=== PATIENT | male | born 1975 | race Caucasian/White ===

== ENCOUNTER 2017-02-23 18:51 | Emergency (ER) | payer BC, OTHER ==
[~2017-02-23] VITALS: Ht 180.3 cm; Wt 113.4 kg
[~2017-02-23 18:51] MED LIST: ALBU90OI; ALBU90OI INH; ALBU90OI6 INH; ALBU90OI61 INH; AMOCLA875 PO; AMOX250 PO; AMOX500 PO; BUPR100; CARI350 PO; CEPH500; CEPH500 PO; CIPR500 PO; CRUTCH3 USE; CYCL10 PO; DIAZ5 PO; DOXY100 PO; ENOX120I; ESCI20; FAMO20 PO; FLUT.05NI; HYDACE5; HYDACE5 PO; HYDACE5325 PO; HYDMOR2 PO; HYDPAM25; HYDPAM50; IBUP600 PO; IBUP800 PO; Levaquin500 MG PO; MARIJUANA; MEDICAL MARIJUANA; METCAR500 PO; Monodox100 MG PO; NAPR250; NAPR500; NAPR500 PO; NAPR500EC PO; Naprosyn500 MG PO; Norco 10-325 T1 EACH PO; Norco 5-325 Ta1 EACH PO; OSEL75CA PO; OXYACE10; OXYACE5T; OXYACE5T PO; OXYC5; PANT40; PRED10 PO; PRED20 PO; PROACE100 PO; PROCODE120 PO; PROM25 PO; Pepcid20 MG PO; QUET25; RANI150; ROXICODONE; RXHYDACE PO; RXPROM25 PO; RXTRAM50 PO; TRAM50 PO; TRAZ100; Veetids 500500 MG PO; WARF1; WARF10; WARF10 PO; WARF7.5; WELLBUTRIN; Zofran Odt8 MG SL; Zofran4 MG PO; [UNRECOGNIZED DRUG - REMARK]
[2017-02-23] MEDS ORDERED: GABA300 PO (19:11)
[2017-12-12] MEDS ORDERED: IBUP800 PO (16:31)
== END 2017-02-23 20:08 | disposition home or self-care (01) ==
LOC: ER 18:51
DX: S60.222A Contusion of left hand, initial encounter (principal); S79.911A Unspecified injury of right hip, initial encounter; M25.561 Pain in right knee; I10 Essential (primary) hypertension; Z88.8 Allergy status to other drugs, medicaments and biological substances; Z88.2 Allergy status to sulfonamides; Z79.899 Other long term (current) drug therapy; Z86.718 Personal history of other venous thrombosis and embolism; Z90.49 Acquired absence of other specified parts of digestive tract; Z87.891 Personal history of nicotine dependence; W19.XXXA Unspecified fall, initial encounter
CPT/HCPCS: 29125; 73130; 73502; 73562-RT; 99283; L3917

== ENCOUNTER 2017-07-14 15:55 | Emergency (ER) | payer OTHER, BC ==
[~2017-07-14] VITALS: Ht 180.3 cm; Wt 111.1 kg
[~2017-07-14 15:55] MED LIST changes: +GABA300 PO
[2017-07-14] MEDS ORDERED: Naprosyn500 MG PO (17:02)
== END 2017-07-14 17:10 | disposition home or self-care (01) ==
LOC: ER 15:55
DX: M54.2 Cervicalgia (principal); M54.6 Pain in thoracic spine; R07.89 Other chest pain; I10 Essential (primary) hypertension; Z88.8 Allergy status to other drugs, medicaments and biological substances; Z88.2 Allergy status to sulfonamides; Z88.1 Allergy status to other antibiotic agents; Z86.718 Personal history of other venous thrombosis and embolism; Z87.891 Personal history of nicotine dependence; V43.62XA Car passenger injured in collision with other type car in traffic accident, initial encounter
CPT/HCPCS: 72040; 96372; 99283; J1885; L0160

== ENCOUNTER 2017-10-23 06:48 | Emergency (ER) | payer BC, OTHER ==
[~2017-10-23] VITALS: Ht 180.3 cm; Wt 108.9 kg
[2017-10-23] MEDS ORDERED: Norco 10-325 T1 EACH PO (07:42)
== END 2017-10-23 08:00 | disposition home or self-care (01) ==
LOC: ER 06:48
DX: M25.512 Pain in left shoulder (principal); Z88.8 Allergy status to other drugs, medicaments and biological substances; Z88.2 Allergy status to sulfonamides; Z88.1 Allergy status to other antibiotic agents; Z87.891 Personal history of nicotine dependence; I10 Essential (primary) hypertension
CPT/HCPCS: 29105; 73030; 96372; 99283-25; J1885

== ENCOUNTER 2018-05-17 21:22 | Emergency (ER) | payer BC ==
[~2018-05-17] VITALS: Ht 180.3 cm; Wt 111.1 kg
== END 2018-05-18 01:12 | disposition home or self-care (01) ==
LOC: ER 21:22
DX: S89.92XA Unspecified injury of left lower leg, initial encounter (principal); X58.XXXA Exposure to other specified factors, initial encounter; I10 Essential (primary) hypertension; F17.290 Nicotine dependence, other tobacco product, uncomplicated
CPT/HCPCS: 29505; 73562-LT; 99283-25; A9270-GY

== ENCOUNTER 2018-08-11 06:56 | Emergency (ER) | payer OTHER ==
[~2018-08-11] VITALS: Ht 182.9 cm; Wt 112.5 kg
[2018-08-11 07:35] LABS: BASOPHILS ABSOLUTE AUTO 0.11 K/mm3 (0.00-0.23); BASOPHILS PERCENT AUTO 1 % (0-2); EOSINOPHILS ABSOLUTE AUTO 0.33 K/mm3 (0.00-0.68); EOSINOPHILS PERCENT AUTO 4 % (0-6); Hematocrit 44.9 % (37.0-53.0); Hemoglobin 15.4 g/dL (13.5-17.5); IMMATURE GRAN ABSOLUTE AUTO 0.03 K/mm3 (0.00-0.10); IMMATURE GRAN PERCENT AUTO 0 % (0-1); LYMPHOCYTES ABSOLUTE AUTO 5.01 K/mm3 (0.84-5.20); LYMPHOCYTES PERCENT AUTO 54 % (21-46); MONOCYTES ABSOLUTE AUTO 0.71 K/mm3 (0.16-1.47); MONOCYTES PERCENT AUTO 8 % (4-13); Mean Corpuscular HGB Conc 34.3 g/dL (31.5-36.5); Mean Corpuscular Volume 87 fL (80-100); Mean Platelet Volume 9.3 fL (9.1-12.4); NEUTROPHILS ABSOLUTE AUTO 3.15 K/mm3 (1.96-9.15); NEUTROPHILS PERCENT AUTO 34 % (41-73); Platelet Count 345 K/mm3 (150-400); RDW Standard Deviation 45.4 fL (35.1-46.3); Red Blood Cell Count 5.14 M/mm3 (4.30-5.90); White Blood Cell Count 9.34 K/mm3 (4.00-11.30)
[2018-08-11 08:00] LABS: Alanine Aminotransfer (ALT/SGP 25 U/L (12-78); Albumin, Blood 3.6 g/dL (3.4-5.0); Albumin/Globulin Ratio 1.2 (0.8-1.8); Alk Phos 76 U/L (50-136); Anion Gap 5 mmol/L (6-16); Aspartate Aminotrans (AST/SGOT 17 U/L (12-37); Bilirubin, Total 0.3 mg/dL (0.1-1.0); Blood Urea Nitrogen 11 mg/dL (8-24); Bun/Creatinine Ratio 16.1 (12.0-20.0); CO2, Blood 25 mmol/L (21-32); Calcium, Blood 7.9 mg/dL (8.5-10.1); Chloride, Blood 113 mmol/L (98-108); Creatinine, Blood 0.68 mg/dL (0.60-1.20); Glomerular Filtration Rate >60 (60-); Glucose, Blood 107 mg/dL (70-99); Potassium, Blood 3.8 mmol/L (3.5-5.5); Sodium, Blood 143 mmol/L (136-145); Total Protein, Blood 6.6 g/dL (6.4-8.2); Troponin I <0.015 ng/mL (0.000-0.040)
== END 2018-08-11 10:20 | disposition home or self-care (01) ==
LOC: ER 06:56
PROVIDERS: Physician Assistant
DX: R07.9 Chest pain, unspecified (principal); Z88.8 Allergy status to other drugs, medicaments and biological substances; Z88.2 Allergy status to sulfonamides; Z88.1 Allergy status to other antibiotic agents; Z87.891 Personal history of nicotine dependence
CPT/HCPCS: 36415; 71046; 80053; 83880; 84484; 85025; 93005; 93010; 99285-25

== ENCOUNTER 2018-08-13 09:58 | Observation (INO) | payer OTHER ==
[~2018-08-13] VITALS: Ht 180.3 cm; Wt 114.0 kg
[2018-08-13 10:56] LABS: BASOPHILS PERCENT AUTO 1 % (0-2); EOSINOPHILS ABSOLUTE AUTO 0.17 K/mm3 (0.00-0.68); EOSINOPHILS PERCENT AUTO 2 % (0-6); Hematocrit 48.6 % (37.0-53.0); Hemoglobin 16.4 g/dL (13.5-17.5); IMMATURE GRAN ABSOLUTE AUTO 0.05 K/mm3 (0.00-0.10); IMMATURE GRAN PERCENT AUTO 1 % (0-1); LYMPHOCYTES ABSOLUTE AUTO 6.58 K/mm3 (0.84-5.20); LYMPHOCYTES PERCENT AUTO 60 % (21-46); MONOCYTES ABSOLUTE AUTO 0.72 K/mm3 (0.16-1.47); MONOCYTES PERCENT AUTO 7 % (4-13); Mean Corpuscular HGB Conc 33.7 g/dL (31.5-36.5); Mean Corpuscular Volume 89 fL (80-100); Mean Platelet Volume 9.5 fL (9.1-12.4); NEUTROPHILS ABSOLUTE AUTO 3.36 K/mm3 (1.96-9.15); NEUTROPHILS PERCENT AUTO 31 % (41-73); Platelet Count 393 K/mm3 (150-400); RDW Coefficient Variation 14.1 % (11.7-14.2); RDW Standard Deviation 45.5 fL (35.1-46.3); Red Blood Cell Count 5.46 M/mm3 (4.30-5.90); White Blood Cell Count 10.98 K/mm3 (4.00-11.30)
[2018-08-13 11:10] LABS: Alanine Aminotransfer (ALT/SGP 31 U/L (12-78); Albumin, Blood 3.9 g/dL (3.4-5.0); Albumin/Globulin Ratio 1.1 (0.8-1.8); Alk Phos 86 U/L (50-136); Anion Gap 5 mmol/L (6-16); Aspartate Aminotrans (AST/SGOT 21 U/L (12-37); Bilirubin, Total 0.5 mg/dL (0.1-1.0); Blood Urea Nitrogen 14 mg/dL (8-24); Bun/Creatinine Ratio 20.6 (12.0-20.0); CO2, Blood 25 mmol/L (21-32); Calcium, Blood 8.9 mg/dL (8.5-10.1); Chloride, Blood 112 mmol/L (98-108); Creatinine, Blood 0.68 mg/dL (0.60-1.20); Globulin, Blood 3.7 g/dL (2.2-4.0); Glomerular Filtration Rate >60 (60-); Glucose, Blood 96 mg/dL (70-99); Potassium, Blood 3.9 mmol/L (3.5-5.5); Sodium, Blood 142 mmol/L (136-145); Total Protein, Blood 7.6 g/dL (6.4-8.2); Troponin I <0.015 ng/mL (0.000-0.040)
[2018-08-13 16:00] LABS: CHOL/HDL RATIO 3.8; Cholesterol 191 mg/dL (50-200); HDL Cholesterol 50 mg/dL (>39); LDL/HDL RATIO 2.5; Low Density Lipoprotein Chol 127 mg/dL (0-110); Triglycerides 71 mg/dL (30-160); Very Low Density Lipoprot Chol 14 mg/dL (6-32)
--- NOTE | 2018-08-14 00:01 | NUR ---
ADMIT NOTE/UPDATE: PATIENT ADMITED FROM THE ER EARLIER THIS SHIFT AND WAS ABLE TO TRANSFER SELF FROM THE GURNEY TO THE BED WITH SBA. PATIENT REPORTS HE HAS BEEN GETTING VERY DIZZY AND HAS FALLEN SEVERAL TIMES DUE TO IT RECENTLY. PATIENT EDUCATED ON FALL PRVENTION AND STATES HE WILL CALL STAFF BEFORE GETTING UP. PATIENT STATES HE HAS MILD CHEST DISCOMFORT BUT DOES NOT REQUIRE MEDICATION FOR IT AT THIS TIME. PATIENT ADMIT COMPLETED PER PATIENT REPORT. PATIENT CURRENTLY RESTING IN BED ATTEMPTING TO SLEEP. VITAL SIGNS CHARTED. REPORT GIVEN TOR SOMERS RN.
--- NOTE | 2018-08-14 03:11 | NUR ---
LATE ENTRY 2340 ASSUMED CARE OF PATIENT FROM CARYN BAR. PATIENT A/O, ABLE TO MAKE NEEDS KNOWN. COOPERATIVE WITH CARE. LAYING IN BED UPON REPORT. NO ACUTE CHANGES CURRENTLY. INDEPENDENTLY TO BATHROOM; CALLS BEFORE EXITING. BED IN LOWEST POSITION. CALL LIGHT AND BELONGINGS WITHIN REACH. TM.
--- NOTE | 2018-08-14 06:28 | NUR ---
SHIFT SUMMARY A/O, ABLE TO MAKE NEEDS KNOWN. COOPERATIVE WITH CARE. ANSWERS QUESTIONS APPROPRIATELY. NO C/O PAIN/DISCOMFORT. DID HOWEVER STATE THAT HE NORMALLY USES MEDICAL MARIJUANA PRIOR TO BED TO HELP SLEEP; STATED THAT HE WOULD TRYOUT MELATONIN. STATED HAD TRIED TRAZADONE PREVIOUSLY, WHICH DID NOT WORK FOR HIM. NEW ORDER FROM ON-CALL FOR MELATONIN 5MG @ BEDTIME PRN. VSS/AFEBRILE. NO OTHER REPORTS OF DIZZINESS. APPEARED TO REST AT LATER PART OF SHIFT. STATED THAT HE DID NOT LIKE THE WAY THE SCD'S FELT ON HIS LEGS AND DID NOT WANT TO WEAR THEM. NEW IV PLACED; STATED PREVIOUS WAS HURTING. NO OTHER ACUTE CHANGES. BED IN LOWEST POSITION. CALL LIGHT AND BELONGINGS WITHIN REACH. WCTM. REPORT TO ONCOMING RN.
--- NOTE | 2018-08-14 07:45 | NUR ---
INITIAL ASSESSMENT: PT IS RESTING IN BED WATCHING TV. PT IS ALERT AND OX3. PT REPORTS HE IS HAVING CONTINOUS CHEST "DISCOMFORT" IN HIS LEFT CHEST AND LEFT SCAPULAR AREA ON HIS BACK. PT RATES IT A 4/10. HE STATES IT GETS WORSE WHEN HE LAYS DOWN. HE IS ALSO HAVING SOME INCREASED SOB. BIOX 93% ON RA. HRR. LS CTA. BT+. PPP, NO EDEMA PRESENT. I AM GONNA HOLD PATIENTS BEAKFAST TRAY UNTIL CARDIOLOGY GETS HERE. PT DENIES OTHER NEEDS AT THIS TIME, CALL LIGHT IN REACH. WILL CONTINUE TO MONITOR.
--- NOTE | 2018-08-14 10:00 | NUR ---
DR. NUNEZ HERE TO SEE THE PATIENT, PLAN IS FOR THE PATIENT TO HAVE AN ANGIOGRAM.
--- NOTE | 2018-08-14 10:45 | NUR ---
PT TO OFFICE MACHINERY OR EQUIPMENT INSTALLER WITH HEART CENTER NURSE.
--- NOTE | 2018-08-14 11:50 | NUR ---
PT ARRIVED BACK FROM THE DOCUMENT CONTROL MANAGER. PT IS AWAKE AND ALERT. RIGHT RADIAL SITE WITH TR BAND AND ARM BOARD. NO OOZING PRESENT, CAP REFILL BRISK. PT DENIES N/T TO RIGHT HAND. PLETH GOOD ON NIBP. PT REPORTS SOME TENDERNESS AT THE SITE. BP A LITTLE HIGH, PT STATES HE DID HAVE SOME ANXIETY DURING THE PROCEDRE, BUT IT IS GETTING BETTER NOW. PT DENIES OTHER NEEDS AT THIS TIME, CALL LIGHT IN REACH. WILL CONTINUE TO MONITOR.
--- NOTE | 2018-08-14 12:00 | NUR ---
REPORT GIVEN TO EMMA RUBIN.
--- NOTE | 2018-08-14 12:57 | NUR ---
ASSUMED CARE OF PATIENT AT THIS TIME. PATIENT RADIAL SITE WNL. NO OOZING AT SITE. TR BAND IN PLACE. VSS AT THIS TIME. PATIENT DENIES PAIN OR DISCOMFORT. WILL CONT TO MONITOR CLOSELY FOR CHANGES. PT FAMILY IN ROOM AT THIS TIME.
--- NOTE | 2018-08-14 17:23 | NUR ---
SHIFT SUMMARY ASSUMED CARE OF PATIENT AT 1230. PATIENT HAD ANGIO TODAY AND WAS CLEAR. TR BAND TO R WRIST. ALL AIR HAS BEEN REMOVED AND WAITING INE HR TO REMOVE BAND. PATIENT ONLY COMPLAINT IS PAIN IN R WRIST. NO OTHER COMPLAINTS. DISCUSSED WITH DR CANNON AND THERE IS POSSIBILITY SHE OR CHANGE BOOTH ATTENDANT MAY ORDER PE STUDIES BUT NO ORDER NOTED AT THIS TIME. PTS VSS. RADIAL SITE WNL, NO BLEEDING OR OOZING.
[2018-08-15] MEDS ORDERED: ATOR20 PO (12:49)
[2018-08-15] MEDS ORDERED: AMLO5 PO (12:50)
--- NOTE | 2018-08-15 13:00 | NUR ---
DISCHARGE SUMMARY PT A&OX4, VSS, WALKED OFF FLOOR TO GO HOME WITH SON, WITH ALL PERSONAL POSSESSIONS INCLUDING DISCHARGE PACKET. DC INSTRUCTIONS PROVIDED. PT REP UNDERSTANDING THOSE INSTRUCTIONS INCLUDING FU APPT WITH CARDIOLOGY AND PCP, NEW MEDS AT PHARMACY. IV DC'D.
== END 2018-08-15 13:00 | disposition home or self-care (01) ==
LOC: ER 09:58 → PCU 09:59 → ERHOLD 09:59 → PCU 20:55
PROVIDERS: Physician Assistant; ADMIT Family Medicine
DX: R07.89 Other chest pain (principal); R55 Syncope and collapse; R00.1 Bradycardia, unspecified; E78.5 Hyperlipidemia, unspecified; I10 Essential (primary) hypertension; Z88.8 Allergy status to other drugs, medicaments and biological substances; Z88.1 Allergy status to other antibiotic agents; Z87.891 Personal history of nicotine dependence
CPT/HCPCS: 36415; 71046; 80053; 80061; 84484; 85025; 85379; 93005; 93010; 93306; 93454; 96361; 96372; 96374; 99152; 99153; 99285-25; A9270; C1769; C1894; G0378; J0461; J1644; J1650; J1885; J2250; J2405; J3010; J7030; Q9967

== ENCOUNTER 2018-10-08 18:06 | Observation (INO) | payer OTHER ==
[~2018-10-08 18:06] MED LIST changes: +AMLO5 PO; +ATOR20 PO
--- NOTE | 2018-10-09 00:02 | NUR ---
10/08/18 2230 PT ADMITTED TO 303 PER CART FROM ER.
[2018-10-09 01:02] LABS: Source, Urine Clean Catch
[2018-10-09 01:10] LABS: Appearance, Urine Clear (Clear); Bilirubin, Urine Neg (Neg); Blood, Urine Neg (Neg); Color, Urine Yellow (P-Yellow); Glucose Qualitative, Urine Neg (Neg); Ketones, Urine 1+ (Neg); Leukocyte Esterase, Urine Neg (Neg); Nitrite, Urine Neg (Neg); Protein, Urine Neg (Neg); Urobilinogen, Urine NORM (Normal)
[2018-10-09 01:33] LABS: U Amphetamine Screen Not Detected; U Barbituate Screen Not Detected; U Benzodiazapine Screen Not Detected; U Buprenorphine Screen Not Detected; U Cannabinoids Screen DETECTED; U Cocaine Screen Not Detected; U Methadone Screen Not Detected; U Methamphetamine Screen Not Detected; U Opiates Screen Not Detected; U Oxycodone Screen Not Detected; U Phencyclidine Screen Not Detected; U Propoxyphene Screen Not Detected
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
[2018-10-09 04:52] LABS: Hematocrit 44.9 % (37.0-53.0); Hemoglobin 15.5 g/dL (13.5-17.5); Mean Corpuscular HGB 30.5 pg (26.0-34.0); Mean Corpuscular HGB Conc 34.5 g/dL (31.5-36.5); Mean Corpuscular Volume 88 fL (80-100); Mean Platelet Volume 9.4 fL (9.1-12.4); Platelet Count 338 K/mm3 (150-400); RDW Coefficient Variation 13.6 % (11.7-14.2); RDW Standard Deviation 44.5 fL (35.1-46.3); Red Blood Cell Count 5.09 M/mm3 (4.30-5.90); White Blood Cell Count 9.87 K/mm3 (4.00-11.30)
[2018-10-09 05:19] LABS: Alanine Aminotransfer (ALT/SGP 26 U/L (12-78); Albumin, Blood 3.6 g/dL (3.4-5.0); Albumin/Globulin Ratio 1.1 (0.8-1.8); Alk Phos 76 U/L (50-136); Anion Gap 6 mmol/L (6-16); Aspartate Aminotrans (AST/SGOT 18 U/L (12-37); Bilirubin, Total 0.7 mg/dL (0.1-1.0); Blood Urea Nitrogen 16 mg/dL (8-24); Bun/Creatinine Ratio 20.4 (12.0-20.0); CO2, Blood 25 mmol/L (21-32); Chloride, Blood 112 mmol/L (98-108); Creatinine, Blood 0.78 mg/dL (0.60-1.20); Globulin, Blood 3.3 g/dL (2.2-4.0); Glomerular Filtration Rate >60 (60-); Glucose, Blood 86 mg/dL (70-99); Potassium, Blood 3.6 mmol/L (3.5-5.5); Sodium, Blood 143 mmol/L (136-145); Total Protein, Blood 6.9 g/dL (6.4-8.2)
[2018-10-09 10:40] LABS: Adenovirus F 40/41 Not Detected (NOT DETECT); Astrovirus Not Detected (NOT DETECT); Campylobacter Sp Not Detected (NOT DETECT); Cryptosporidium Not Detected (NOT DETECT); Cyclospora Cayetanensis Not Detected (NOT DETECT); E. Coli O157 Not Detected (NOT DETECT); Entamoeba Histolytica Not Detected (NOT DETECT); Enteroaggregative E. coli-EAEC Not Detected (NOT DETECT); Enteropathogenic E. coli-EPEC Not Detected (NOT DETECT); Enterotoxigenic E. coli-ETEC Not Detected (NOT DETECT); Giardia Lamblia Not Detected (NOT DETECT); Norovirus GI/GII Not Detected (NOT DETECT); Plesiomonas Shigelloides Not Detected (NOT DETECT); Rotavirus A Not Detected (NOT DETECT); Salmonella Sp Not Detected (NOT DETECT); Sapovirus Not Detected (NOT DETECT); Shiga Toxin-prod E. coli-STEC Not Detected (NOT DETECT); Shigella/Enteroin E. coli-EIEC Not Detected (NOT DETECT); Vibrio Cholerae Not Detected (NOT DETECT); Vibrio Sp Not Detected (NOT DETECT); Yersinia Enterocolitica Not Detected (NOT DETECT)
[2018-10-09] MEDS ORDERED: OMEP20ER PO (15:14)
--- NOTE | 2018-10-09 17:10 | NUR ---
PT. DISCHARGED HOME WITH INSTRUCTIONS NOT TO DRIVE UNTIL FOLLOWING UP WITH THE INSTRUMENT TECHNICIAN. DISCHARGED HOME WITH SPOUSE.
== END 2018-10-09 17:13 | disposition home or self-care (01) ==
LOC: ER 18:06 → MEDS 18:07
PROVIDERS: ADMIT Internal Medicine
DX: R55 Syncope and collapse (principal); I10 Essential (primary) hypertension; E78.5 Hyperlipidemia, unspecified; R19.7 Diarrhea, unspecified; M54.9 Dorsalgia, unspecified; G89.29 Other chronic pain; Z86.718 Personal history of other venous thrombosis and embolism; Z88.1 Allergy status to other antibiotic agents; Z88.8 Allergy status to other drugs, medicaments and biological substances; G47.00 Insomnia, unspecified
CPT/HCPCS: 0097U; 36415; 70450; 71260; 72125; 80053; 81003; 83880; 84484; 85025; 85027; 93005; 93010; 96372; 96374; 99284-25; 99285-25; A9270; G0378; J0360; J1650; J7030; Q9967

== ENCOUNTER 2018-10-15 09:54 | Emergency (ER) | payer OTHER ==
[~2018-10-15] VITALS: Ht 180.3 cm; Wt 115.2 kg
[~2018-10-15 09:54] MED LIST changes: +OMEP20ER PO
[2018-10-15 10:34] LABS: BASOPHILS ABSOLUTE AUTO 0.12 K/mm3 (0.00-0.23); BASOPHILS PERCENT AUTO 1 % (0-2); EOSINOPHILS ABSOLUTE AUTO 0.16 K/mm3 (0.00-0.68); EOSINOPHILS PERCENT AUTO 2 % (0-6); Hematocrit 48.5 % (37.0-53.0); Hemoglobin 16.7 g/dL (13.5-17.5); IMMATURE GRAN ABSOLUTE AUTO 0.04 K/mm3 (0.00-0.10); IMMATURE GRAN PERCENT AUTO 0 % (0-1); LYMPHOCYTES ABSOLUTE AUTO 6.31 K/mm3 (0.84-5.20); LYMPHOCYTES PERCENT AUTO 60 % (21-46); MONOCYTES ABSOLUTE AUTO 0.79 K/mm3 (0.16-1.47); MONOCYTES PERCENT AUTO 7 % (4-13); Mean Corpuscular HGB Conc 34.4 g/dL (31.5-36.5); Mean Corpuscular Volume 87 fL (80-100); Mean Platelet Volume 9.2 fL (9.1-12.4); NEUTROPHILS ABSOLUTE AUTO 3.19 K/mm3 (1.96-9.15); NEUTROPHILS PERCENT AUTO 30 % (41-73); Platelet Count 382 K/mm3 (150-400); RDW Coefficient Variation 13.5 % (11.7-14.2); Red Blood Cell Count 5.57 M/mm3 (4.30-5.90); White Blood Cell Count 10.61 K/mm3 (4.00-11.30)
[2018-10-15 11:01] LABS: Alanine Aminotransfer (ALT/SGP 29 U/L (12-78); Albumin, Blood 4.2 g/dL (3.4-5.0); Albumin/Globulin Ratio 1.1 (0.8-1.8); Alk Phos 86 U/L (50-136); Anion Gap 9 mmol/L (6-16); Aspartate Aminotrans (AST/SGOT 19 U/L (12-37); Bilirubin, Total 0.4 mg/dL (0.1-1.0); Blood Urea Nitrogen 13 mg/dL (8-24); Bun/Creatinine Ratio 20.8 (12.0-20.0); CO2, Blood 22 mmol/L (21-32); Calcium, Blood 8.8 mg/dL (8.5-10.1); Chloride, Blood 111 mmol/L (98-108); Creatinine, Blood 0.62 mg/dL (0.60-1.20); Globulin, Blood 3.8 g/dL (2.2-4.0); Glomerular Filtration Rate >60 (60-); Glucose, Blood 95 mg/dL (70-99); Potassium, Blood 3.8 mmol/L (3.5-5.5); Sodium, Blood 142 mmol/L (136-145); Troponin I <0.015 ng/mL (0.000-0.040)
== END 2018-10-15 16:16 | disposition home or self-care (01) ==
LOC: ER 09:54
PROVIDERS: Emergency Medicine
DX: R55 Syncope and collapse (principal); Z88.8 Allergy status to other drugs, medicaments and biological substances; Z88.2 Allergy status to sulfonamides; Z88.1 Allergy status to other antibiotic agents; Z79.899 Other long term (current) drug therapy; I10 Essential (primary) hypertension; Z87.891 Personal history of nicotine dependence
CPT/HCPCS: 36415; 71046; 80053; 82947; 84484; 85025; 93005; 93010; 99284-25

== ENCOUNTER 2018-11-03 05:31 | Day surgery (SDC) | payer OTHER ==
[~2018-11-03] VITALS: Ht 180.3 cm; Wt 115.0 kg
--- NOTE | 2018-11-03 08:13 | NUR ---
DISCHARGE PT REMAINED A&OX3 AND DENIED ANY PAIN FROM END OF PROCEDURE. DISCHARGE EDUCATION GONE OVER WITH PT AND FOLLOW-UP APPOINTMENT SCHEDULED. PT AND SPOUSE VERBALLY STATED THE UNDERSTANDING OF THE DISCHARGE PAPERWORK AND DENIED ANY QUESTIONS AT THIS TIME. PT REFUSED WHEELCHAIR AND WALKED OUT WITH .
== END 2018-11-03 22:44 | disposition home or self-care (01) ==
LOC: MHTC 05:31
DX: R55 Syncope and collapse (principal); I10 Essential (primary) hypertension; K21.9 Gastro-esophageal reflux disease without esophagitis; Z79.899 Other long term (current) drug therapy; Z87.891 Personal history of nicotine dependence; Z88.1 Allergy status to other antibiotic agents; Z88.8 Allergy status to other drugs, medicaments and biological substances
CPT/HCPCS: 33285; 99152; C1764; J2250; J3010; J7040

== ENCOUNTER 2019-05-20 21:02 | Emergency (ER) | payer OTHER ==
[~2019-05-20] VITALS: Ht 180.3 cm; Wt 113.8 kg
[2019-05-20 21:28] LABS: BASOPHILS ABSOLUTE AUTO 0.11 K/mm3 (0.00-0.23); BASOPHILS PERCENT AUTO 1 % (0-2); EOSINOPHILS ABSOLUTE AUTO 0.39 K/mm3 (0.00-0.68); EOSINOPHILS PERCENT AUTO 3 % (0-6); Hematocrit 46.9 % (37.0-53.0); Hemoglobin 15.8 g/dL (13.5-17.5); IMMATURE GRAN ABSOLUTE AUTO 0.03 K/mm3 (0.00-0.10); IMMATURE GRAN PERCENT AUTO 0 % (0-1); LYMPHOCYTES ABSOLUTE AUTO 7.21 K/mm3 (0.84-5.20); LYMPHOCYTES PERCENT AUTO 56 % (21-46); MONOCYTES ABSOLUTE AUTO 1.11 K/mm3 (0.16-1.47); MONOCYTES PERCENT AUTO 9 % (4-13); Mean Corpuscular HGB 29.6 pg (26.0-34.0); Mean Corpuscular HGB Conc 33.7 g/dL (31.5-36.5); Mean Corpuscular Volume 88 fL (80-100); Mean Platelet Volume 9.2 fL (9.1-12.4); NEUTROPHILS ABSOLUTE AUTO 3.98 K/mm3 (1.96-9.15); NEUTROPHILS PERCENT AUTO 31 % (41-73); Platelet Count 367 K/mm3 (150-400); RDW Coefficient Variation 14.2 % (11.7-14.2); Red Blood Cell Count 5.34 M/mm3 (4.30-5.90); White Blood Cell Count 12.83 K/mm3 (4.00-11.30)
[2019-05-20 21:50] LABS: Troponin I <0.015 ng/mL (0.000-0.040)
[2019-05-20 23:36] LABS: Alanine Aminotransfer (ALT/SGP 35 U/L (12-78); Albumin, Blood 3.9 g/dL (3.4-5.0); Albumin/Globulin Ratio 1.1 (0.8-1.8); Anion Gap 9 mmol/L (6-16); Aspartate Aminotrans (AST/SGOT 24 U/L (12-37); Bilirubin, Total 0.3 mg/dL (0.1-1.0); Blood Urea Nitrogen 18 mg/dL (8-24); Bun/Creatinine Ratio 21.4 (12.0-20.0); CO2, Blood 23 mmol/L (21-32); Calcium, Blood 8.7 mg/dL (8.5-10.1); Chloride, Blood 114 mmol/L (98-108); Creatinine, Blood 0.84 mg/dL (0.60-1.20); Globulin, Blood 3.6 g/dL (2.2-4.0); Glomerular Filtration Rate >60 (60-); Glucose, Blood 112 mg/dL (70-99); Potassium, Blood 3.9 mmol/L (3.5-5.5); Sodium, Blood 146 mmol/L (136-145); Total Protein, Blood 7.5 g/dL (6.4-8.2)
[2019-05-20 23:38] LABS: Alk Phos 91 U/L (50-136)
== END 2019-05-21 01:03 | disposition home or self-care (01) ==
LOC: ER 21:02
PROVIDERS: Emergency Medicine
DX: R00.2 Palpitations (principal); R42 Dizziness and giddiness; I10 Essential (primary) hypertension; M54.9 Dorsalgia, unspecified; G89.29 Other chronic pain; Z86.711 Personal history of pulmonary embolism; Z88.2 Allergy status to sulfonamides; Z88.8 Allergy status to other drugs, medicaments and biological substances; Z87.891 Personal history of nicotine dependence
CPT/HCPCS: 36415; 71046; 80053; 83690; 83880; 84484; 85025; 93005; 93010; 99284-25

== ENCOUNTER 2019-11-15 07:51 | Inpatient (IN) | payer OTHER ==
[~2019-11-15] VITALS: Ht 180.3 cm; Wt 113.5 kg
[2019-11-15 08:37] LABS: BASOPHILS ABSOLUTE AUTO 0.12 K/mm3 (0.00-0.23); BASOPHILS PERCENT AUTO 1 % (0-2); EOSINOPHILS ABSOLUTE AUTO 0.21 K/mm3 (0.00-0.68); EOSINOPHILS PERCENT AUTO 2 % (0-6); Hematocrit 46.2 % (37.0-53.0); Hemoglobin 15.7 g/dL (13.5-17.5); IMMATURE GRAN ABSOLUTE AUTO 0.06 K/mm3 (0.00-0.10); IMMATURE GRAN PERCENT AUTO 1 % (0-1); LYMPHOCYTES ABSOLUTE AUTO 5.44 K/mm3 (0.84-5.20); LYMPHOCYTES PERCENT AUTO 47 % (21-46); MONOCYTES ABSOLUTE AUTO 1.02 K/mm3 (0.16-1.47); MONOCYTES PERCENT AUTO 9 % (4-13); Mean Corpuscular HGB 29.9 pg (26.0-34.0); Mean Corpuscular Volume 88 fL (80-100); Mean Platelet Volume 9.1 fL (9.1-12.4); NEUTROPHILS ABSOLUTE AUTO 4.62 K/mm3 (1.96-9.15); NEUTROPHILS PERCENT AUTO 40 % (41-73); Platelet Count 356 K/mm3 (150-400); RDW Coefficient Variation 14.4 % (11.7-14.2); RDW Standard Deviation 46.4 fL (35.1-46.3); Red Blood Cell Count 5.25 M/mm3 (4.30-5.90); White Blood Cell Count 11.47 K/mm3 (4.00-11.30)
[2019-11-15 08:57] LABS: Alanine Aminotransfer (ALT/SGP 25 U/L (12-78); Albumin, Blood 3.6 g/dL (3.4-5.0); Alk Phos 75 U/L (50-136); Anion Gap 8 mmol/L (6-16); Aspartate Aminotrans (AST/SGOT 18 U/L (12-37); Bilirubin, Total 0.5 mg/dL (0.1-1.0); Blood Urea Nitrogen 11 mg/dL (8-24); Bun/Creatinine Ratio 14.9 (12.0-20.0); CO2, Blood 23 mmol/L (21-32); Chloride, Blood 111 mmol/L (98-108); Creatinine, Blood 0.74 mg/dL (0.60-1.20); Globulin, Blood 3.5 g/dL (2.2-4.0); Glomerular Filtration Rate >60 (60-); Glucose, Blood 102 mg/dL (70-99); Potassium, Blood 3.8 mmol/L (3.5-5.5); Sodium, Blood 142 mmol/L (136-145); Total Protein, Blood 7.1 g/dL (6.4-8.2)
--- NOTE | 2019-11-15 18:15 | NUR ---
SHIFT SUMMARY PATIENT IS PLEASANT, ALERT AND ORIENTED. HE HAS A LOOP TRACKER IN HIS CHEST TO RECORD FOR ANY CONCERNS DUE TO FAINTING. HE HAS NOT HAD AN EPISODE RECENTLY. HE DOES HAVE R SIDED FACIAL SWELLING. DENIES ANY CONCERNS OF PAIN. HE HAD NO TROUBLE SWALLOWING. HE WAS SEEN BY ENT TODAY. INDEPENDENT IN THE ROOM.
--- NOTE | 2019-11-15 19:00 | NUR ---
ASSUMED CARE RECEIVED REPORT FROM CARYN GARCIA. ASSUMED CARE OF PT, NO S/S ACUTE DISTRESS NOTED, DENIES CP, PRESSURE, SOB. NO C/O DIZZINESS. REVIEWED PLAN OF CARE. PT INDICATES UNDERSTANDING. DENIES FURTHER NEEDS AT THIS TIME. CALL LIGHT, POSSESSIONS IN REACH, WILL CONTINUE TO MONITOR AND PROVIDE CARE NEEDED.
[2019-11-16 05:24] LABS: BASOPHILS ABSOLUTE AUTO 0.01 K/mm3 (0.00-0.23); BASOPHILS PERCENT AUTO 0 % (0-2); EOSINOPHILS ABSOLUTE AUTO 0.01 K/mm3 (0.00-0.68); EOSINOPHILS PERCENT AUTO 0 % (0-6); Hematocrit 49.1 % (37.0-53.0); Hemoglobin 16.8 g/dL (13.5-17.5); IMMATURE GRAN ABSOLUTE AUTO 0.05 K/mm3 (0.00-0.10); IMMATURE GRAN PERCENT AUTO 0 % (0-1); LYMPHOCYTES ABSOLUTE AUTO 3.32 K/mm3 (0.84-5.20); LYMPHOCYTES PERCENT AUTO 28 % (21-46); MONOCYTES ABSOLUTE AUTO 0.19 K/mm3 (0.16-1.47); MONOCYTES PERCENT AUTO 2 % (4-13); Mean Corpuscular HGB 29.4 pg (26.0-34.0); Mean Corpuscular HGB Conc 34.2 g/dL (31.5-36.5); Mean Corpuscular Volume 86 fL (80-100); Mean Platelet Volume 9.2 fL (9.1-12.4); NEUTROPHILS ABSOLUTE AUTO 8.39 K/mm3 (1.96-9.15); NEUTROPHILS PERCENT AUTO 70 % (41-73); Platelet Count 370 K/mm3 (150-400); RDW Standard Deviation 44.7 fL (35.1-46.3); Red Blood Cell Count 5.71 M/mm3 (4.30-5.90); White Blood Cell Count 11.97 K/mm3 (4.00-11.30)
[2019-11-16 05:49] LABS: Anion Gap 8 mmol/L (6-16); Blood Urea Nitrogen 12 mg/dL (8-24); Bun/Creatinine Ratio 16.1 (12.0-20.0); CO2, Blood 23 mmol/L (21-32); Calcium, Blood 8.9 mg/dL (8.5-10.1); Chloride, Blood 109 mmol/L (98-108); Creatinine, Blood 0.74 mg/dL (0.60-1.20); Glomerular Filtration Rate >60 (60-); Glucose, Blood 146 mg/dL (70-99); Potassium, Blood 3.8 mmol/L (3.5-5.5); Sodium, Blood 140 mmol/L (136-145)
--- NOTE | 2019-11-16 06:42 | NUR ---
SHIFT SUMMARY PT RESTING COMFORTABLY AT THIS TIME. NO S/S ACUTE DISTRESS NOTED. NO ACUTE CHANGES T/O NIGHT, TOLERATED ABX WELL. VSS. PT DENIES NEEDS AT THIS TIME. CALL LIGHT, POSSESSIONS IN REACH. WILL CONTINUE TO PROVIDE CARE UNTIL DAY RN ASSUMES CARE.
--- NOTE | 2019-11-16 17:34 | NUR ---
PATIENT IS ALERT AND ORIENTED AND COOPERATIVE WITH CARE. NO COMPLAINTS OF PAIN. PATIENT STATES THE SWELLING IN HIS NECK HAS GONE DOWN. PATIENT'S VISITED HIM TODAY. NO COMPLAINTS OF LIGHTHEADEDNESS OR SYNCOPE THIS SHIFT. PATIENT IS INDEPENDENT IN HIS ROOM. LR WAS DISCONTINUED. WILL CONTINUE TO MONITOR.
--- NOTE | 2019-11-17 05:12 | NUR ---
SHIFT SUMMARY: PT A&O X4. LOW GRADE TEMP OF 99.2. PT ASYMPTOMATIC. OTHERWISE, VS WNL. NO ACUTE CHANGES THIS SHIFT. PT CONTINUES TO HAVE SWELLING TO RIGHT SIDE OF FACE/NECK/JAW BUT REPORTS THE SWELLING HAS DECREASED. DENIES PAIN AND SOB. TOLERATING PO. IV ABX INFUSING PER EMAR. SALINE LOCKED BETWEEN INFUSIONS. INDEPENDENT IN ROOM. NO COMPLAINTS THIS SHIFT.
[2019-11-17 05:51] LABS: BASOPHILS ABSOLUTE AUTO 0.02 K/mm3 (0.00-0.23); BASOPHILS PERCENT AUTO 0 % (0-2); EOSINOPHILS ABSOLUTE AUTO 0.05 K/mm3 (0.00-0.68); EOSINOPHILS PERCENT AUTO 0 % (0-6); Hematocrit 47.6 % (37.0-53.0); Hemoglobin 16.4 g/dL (13.5-17.5); IMMATURE GRAN ABSOLUTE AUTO 0.09 K/mm3 (0.00-0.10); IMMATURE GRAN PERCENT AUTO 1 % (0-1); LYMPHOCYTES ABSOLUTE AUTO 2.49 K/mm3 (0.84-5.20); LYMPHOCYTES PERCENT AUTO 17 % (21-46); MONOCYTES ABSOLUTE AUTO 0.66 K/mm3 (0.16-1.47); MONOCYTES PERCENT AUTO 5 % (4-13); Mean Corpuscular HGB 29.9 pg (26.0-34.0); Mean Corpuscular HGB Conc 34.5 g/dL (31.5-36.5); Mean Corpuscular Volume 87 fL (80-100); Mean Platelet Volume 10.3 fL (9.1-12.4); NEUTROPHILS PERCENT AUTO 78 % (41-73); Platelet Count 312 K/mm3 (150-400); RDW Coefficient Variation 14.3 % (11.7-14.2); RDW Standard Deviation 46.1 fL (35.1-46.3); Red Blood Cell Count 5.49 M/mm3 (4.30-5.90); White Blood Cell Count 14.81 K/mm3 (4.00-11.30)
[2019-11-17 06:11] LABS: Anion Gap 7 mmol/L (6-16); Blood Urea Nitrogen 14 mg/dL (8-24); Bun/Creatinine Ratio 17.6 (12.0-20.0); CO2, Blood 24 mmol/L (21-32); Calcium, Blood 8.4 mg/dL (8.5-10.1); Chloride, Blood 111 mmol/L (98-108); Glomerular Filtration Rate >60 (60-); Glucose, Blood 135 mg/dL (70-99); Sodium, Blood 142 mmol/L (136-145)
--- NOTE | 2019-11-17 17:01 | NUR ---
SHIFT SUMMARY NO ACUTE CHANGES T/O SHIFT. A&OX4. PT STATES NO PAIN T/O SHIFT AND THAT SWELLING HAS GREATLY REDUCED SINCE ADMISSION TO THE HOSPITAL. PT HAS BEEN IN NSR PER PCU CYTOTECHNOLOGIST SUPERVISOR AND IS ON ROOM AIR. PT IS INDEPENDENT AND HAS BATHROOM PRIVLEDGES. CALLS APPROPRIATLY WHEN NEEDED AND IS COOPERATIVE WITH HIS CARE. PT MAY BE DISCHARGED TOMORROW LONG SWELLING CONTINUES TO GO DOWN AND PT RESPONDS APPROPRIATELY TO TX.
--- NOTE | 2019-11-18 07:45 | NUR ---
OFFICE MACHINE INSTALLER SUMMARY Patient slept well overnight. A&OX4, pleasant and cooperative with care. Voiding clear yellow urine independently in bathroom. No complaints of discomfort. Right jaw nodule according to patient is looking and feeling much better. Patient looking forward to going home soon.
[2019-11-18] MEDS ORDERED: AMOCLA875 PO (09:20)
[2019-11-18] MEDS ORDERED: PRED20 PO (09:21)
[2019-11-18] MEDS ORDERED: CULTURELLE PO (09:22)
--- NOTE | 2019-11-18 10:13 | NUR ---
DISCHARGE INSTRUCTIONS REVIEWED WITH PT AND SPOUSE. IV DC'D INTACT. RX FAXED TO [facility]. ATTEMPTING TO MAKE A F/U APPT WITH PCP AND DR MENSAH, BOTH OFFICES TO CALL PT BACK WITH AN APPT. PT DISCHARGED AT 1010, AMBULATED OUT INDEP WITH SPOUSE.
== END 2019-11-18 10:11 | disposition home or self-care (01) | DRG 607 ==
LOC: ER 07:51 → MEDS 07:52
PROVIDERS: Internal Medicine; Nurse Practitioner Acute Care; Physician Assistant; ADMIT Internal Medicine
DX: R22.1 Localized swelling, mass and lump, neck (principal); R73.9 Hyperglycemia, unspecified; T38.0X5A Adverse effect of glucocorticoids and synthetic analogues, initial encounter; I10 Essential (primary) hypertension; Z86.718 Personal history of other venous thrombosis and embolism; Z87.891 Personal history of nicotine dependence
CPT/HCPCS: 36415; 70491; 80048; 80053; 85025; 96361; 96365-59; 96366; 96372; 96375-59; 96376; 99285-25; G0378; J0295; J1100; J1650; J7050; J7120; Q9967

== ENCOUNTER 2020-01-08 17:46 | Emergency (ER) | payer OTHER ==
[~2020-01-08] VITALS: Ht 180.3 cm; Wt 113.4 kg
[~2020-01-08 17:46] MED LIST changes: +CULTURELLE PO
[2020-01-08 18:44] LABS: Hematocrit 46.1 % (37.0-53.0); Hemoglobin 15.6 g/dL (13.5-17.5); Mean Corpuscular HGB 29.7 pg (26.0-34.0); Mean Corpuscular HGB Conc 33.8 g/dL (31.5-36.5); Mean Corpuscular Volume 88 fL (80-100); Mean Platelet Volume 9.1 fL (9.1-12.4); Platelet Count 350 K/mm3 (150-400); RDW Coefficient Variation 14.5 % (11.7-14.2); Red Blood Cell Count 5.25 M/mm3 (4.30-5.90); White Blood Cell Count 14.05 K/mm3 (4.00-11.30)
[2020-01-08 19:08] LABS: BASOPHILS PERCENT MAN 0 % (0-2); EOSINOPHILS PERCENT MAN 5 % (0-6); LYMPHOCYTES PERCENT MAN 42 % (21-46); MONOCYTES ABSOLUTE MAN 0.84 K/mm3 (0.16-1.47); MONOCYTES PERCENT MAN 6 % (4-13); SEG NEUTROPHILS PERCENT MAN 47 % (41-73); TOTAL CELLS COUNTED 100
[2020-01-08 19:33] LABS: Alanine Aminotransfer (ALT/SGP 25 U/L (12-78); Albumin, Blood 3.7 g/dL (3.4-5.0); Albumin/Globulin Ratio 1.1 (0.8-1.8); Alk Phos 86 U/L (50-136); Anion Gap 5 mmol/L (6-16); Aspartate Aminotrans (AST/SGOT 21 U/L (12-37); Bilirubin, Total 0.4 mg/dL (0.1-1.0); Blood Urea Nitrogen 18 mg/dL (8-24); Bun/Creatinine Ratio 17.1 (12.0-20.0); CO2, Blood 26 mmol/L (21-32); Calcium, Blood 8.6 mg/dL (8.5-10.1); Chloride, Blood 115 mmol/L (98-108); Creatinine, Blood 1.05 mg/dL (0.60-1.20); Globulin, Blood 3.3 g/dL (2.2-4.0); Glomerular Filtration Rate >60 (60-); Glucose, Blood 106 mg/dL (70-99); Potassium, Blood 4.2 mmol/L (3.5-5.5); Sodium, Blood 146 mmol/L (136-145)
[2020-01-08] MEDS ORDERED: AMOCLA875 PO (21:32)
== END 2020-01-08 21:43 | disposition home or self-care (01) ==
LOC: ER 17:46
PROVIDERS: Physician Assistant
DX: J03.80 Acute tonsillitis due to other specified organisms (principal); B96.89 Other specified bacterial agents as the cause of diseases classified elsewhere; Z79.52 Long term (current) use of systemic steroids; Z88.2 Allergy status to sulfonamides; Z88.1 Allergy status to other antibiotic agents; Z88.8 Allergy status to other drugs, medicaments and biological substances; Z87.891 Personal history of nicotine dependence
CPT/HCPCS: 36415; 70491; 80053; 85025; 99284-25; J1100; J7512; Q9967

== ENCOUNTER 2020-04-18 08:33 | Day surgery (SDC) | payer BC, OTHER ==
[2020-04-18] MEDS ORDERED: LORA.5 PO (09:29)
[2020-04-18] MEDS ORDERED: ACYC800 PO (09:29)
[2020-04-18] MEDS ORDERED: OLAN5 PO (09:29)
[2020-04-18] MEDS ORDERED: DOCU100 PO (09:29)
[2020-04-18] MEDS ORDERED: ONDA4 PO (09:30)
[2020-04-18] MEDS ORDERED: PROC5 PO (09:30)
[2020-04-18] MEDS ORDERED: OMEP20ER PO (09:30)
== END 2020-04-18 09:15 | disposition home or self-care (01) ==
LOC: ATC 08:33
DX: Z45.2 Encounter for adjustment and management of vascular access device (principal); Z48.01 Encounter for change or removal of surgical wound dressing; C83.31 Diffuse large B-cell lymphoma, lymph nodes of head, face, and neck
CPT/HCPCS: 99213

== ENCOUNTER 2020-04-25 00:15 | Day surgery (SDC) | payer BC, OTHER ==
[~2020-04-25 00:15] MED LIST changes: +ACYC800 PO; +DOCU100 PO; +LORA.5 PO; +OLAN5 PO; +ONDA4 PO; +PROC5 PO
[2020-04-25] MEDS ORDERED: LOSARTAN POTASS25 M2 PO (11:57)
[2020-04-25] MEDS ORDERED: ESCI10 PO (11:57)
== END 2020-04-25 10:12 | disposition home or self-care (01) ==
LOC: ATC 00:15
DX: C83.31 Diffuse large B-cell lymphoma, lymph nodes of head, face, and neck (principal)
CPT/HCPCS: 99211

== ENCOUNTER 2020-05-03 00:09 | Day surgery (SDC) | payer BC, OTHER ==
[~2020-05-03 00:09] MED LIST changes: +ESCI10 PO; +LOSARTAN POTASS25 M2 PO
== END 2020-05-03 08:25 | disposition home or self-care (01) ==
LOC: ATC 00:09
DX: C85.14 Unspecified B-cell lymphoma, lymph nodes of axilla and upper limb (principal); C83.31 Diffuse large B-cell lymphoma, lymph nodes of head, face, and neck
CPT/HCPCS: 99212

== ENCOUNTER 2020-05-05 00:08 | Day surgery (SDC) | payer BC, OTHER ==
[2020-05-05 14:51] LABS: Hematocrit 35.8 % (37.0-53.0); Hemoglobin 12.4 g/dL (13.5-17.5); Mean Corpuscular HGB 30.5 pg (26.0-34.0); Mean Corpuscular HGB Conc 34.6 g/dL (31.5-36.5); Mean Corpuscular Volume 88 fL (80-100); Mean Platelet Volume 9.4 fL (9.1-12.4); Platelet Count 213 K/mm3 (150-400); RDW Coefficient Variation 15.5 % (11.7-14.2); RDW Standard Deviation 47.9 fL (35.1-46.3); Red Blood Cell Count 4.07 M/mm3 (4.30-5.90); White Blood Cell Count 31.64 K/mm3 (4.00-11.30)
[2020-05-05] MEDS ORDERED: AMLODIPINE BESYL5 MG PO (15:00)
[2020-05-05 15:11] LABS: Alanine Aminotransfer (ALT/SGP 34 U/L (12-78); Alk Phos 92 U/L (50-136); Anion Gap 7 mmol/L (6-16); Aspartate Aminotrans (AST/SGOT 16 U/L (12-37); Bilirubin, Total 0.2 mg/dL (0.1-1.0); Blood Urea Nitrogen 18 mg/dL (8-24); Bun/Creatinine Ratio 27.6 (12.0-20.0); CO2, Blood 24 mmol/L (21-32); Calcium, Blood 7.1 mg/dL (8.5-10.1); Chloride, Blood 116 mmol/L (98-108); Creatinine, Blood 0.65 mg/dL (0.60-1.20); Globulin, Blood 2.9 g/dL (2.2-4.0); Glomerular Filtration Rate >60 (60-); Glucose, Blood 91 mg/dL (70-99); Lactate Dehydrogenase (Ld),Bld 251 U/L (100-240); Phosphorus, Blood 2.9 mg/dL (2.5-4.9); Potassium, Blood 3.5 mmol/L (3.5-5.5); Sodium, Blood 147 mmol/L (136-145); Total Protein, Blood 5.9 g/dL (6.4-8.2); Uric Acid, Blood 4.6 mg/dL (3.5-7.2)
[2020-05-05 15:14] LABS: BAND PERCENT MAN 1 % (0-8); BASOPHILS PERCENT MAN 0 % (0-2); EOSINOPHILS PERCENT MAN 0 % (0-6); LYMPHOCYTES ABSOLUTE MAN 3.16 K/mm3 (0.84-5.20); LYMPHOCYTES PERCENT MAN 10 % (21-46); MONOCYTES PERCENT MAN 0 % (4-13); NEUTROPHILS ABSOLUTE MAN 28.47 K/mm3 (1.96-9.15); SEG NEUTROPHILS PERCENT MAN 89 % (41-73); TOTAL CELLS COUNTED 100
== END 2020-05-05 14:40 | disposition home or self-care (01) ==
LOC: ATC 00:08
PROVIDERS: Internal Medicine Hematology & Oncology
DX: C85.14 Unspecified B-cell lymphoma, lymph nodes of axilla and upper limb (principal); C83.31 Diffuse large B-cell lymphoma, lymph nodes of head, face, and neck
CPT/HCPCS: 36592; 80053; 83615; 84100; 84550; 85025

== ENCOUNTER 2020-05-09 00:17 | Day surgery (SDC) | payer BC, OTHER ==
[~2020-05-09 00:17] MED LIST changes: +AMLODIPINE BESYL5 MG PO
[2020-05-09 08:46] LABS: Hematocrit 37.4 % (37.0-53.0); Mean Corpuscular HGB 30.5 pg (26.0-34.0); Mean Corpuscular HGB Conc 34.8 g/dL (31.5-36.5); Mean Corpuscular Volume 88 fL (80-100); NRBC ABSOLUTE 1.32 K/mm3 (0.00-0.02); Platelet Count 136 K/mm3 (150-400); RDW Coefficient Variation 16.4 % (11.7-14.2); RDW Standard Deviation 48.8 fL (35.1-46.3); Red Blood Cell Count 4.26 M/mm3 (4.30-5.90); White Blood Cell Count 26.45 K/mm3 (4.00-11.30)
[2020-05-09 09:15] LABS: Alanine Aminotransfer (ALT/SGP 65 U/L (12-78); Albumin, Blood 3.5 g/dL (3.4-5.0); Alk Phos 133 U/L (50-136); Anion Gap 7 mmol/L (6-16); Aspartate Aminotrans (AST/SGOT 73 U/L (12-37); Bilirubin, Total 0.4 mg/dL (0.1-1.0); Blood Urea Nitrogen 11 mg/dL (8-24); Bun/Creatinine Ratio 12.9 (12.0-20.0); CO2, Blood 26 mmol/L (21-32); Calcium, Blood 8.7 mg/dL (8.5-10.1); Chloride, Blood 110 mmol/L (98-108); Creatinine, Blood 0.86 mg/dL (0.60-1.20); Globulin, Blood 3.5 g/dL (2.2-4.0); Glomerular Filtration Rate >60 (60-); Glucose, Blood 143 mg/dL (70-99); Phosphorus, Blood 3.3 mg/dL (2.5-4.9); Potassium, Blood 3.4 mmol/L (3.5-5.5); Sodium, Blood 143 mmol/L (136-145)
[2020-05-09 09:29] LABS: BAND PERCENT MAN 10 % (0-8); BASOPHILS PERCENT MAN 0 % (0-2); EOSINOPHILS PERCENT MAN 0 % (0-6); LYMPHOCYTES ABSOLUTE MAN 8.46 K/mm3 (0.84-5.20); LYMPHOCYTES PERCENT MAN 32 % (21-46); METAMYELOCYTE ABSOLUTE MAN 1.85 K/mm3 (0.00-0.00); METAMYELOCYTE PERCENT MAN 7 % (0-0); MONOCYTES ABSOLUTE MAN 3.96 K/mm3 (0.16-1.47); MONOCYTES PERCENT MAN 15 % (4-13); MYELOCYTE ABSOLUTE MAN 1.85 K/mm3 (0.00-0.00); MYELOCYTE PERCENT MAN 7 % (0-0); NEUTROPHILS ABSOLUTE MAN 10.31 K/mm3 (1.96-9.15); SEG NEUTROPHILS PERCENT MAN 29 % (41-73); TOTAL CELLS COUNTED 100
[2020-05-09 09:32] LABS: Lactate Dehydrogenase (Ld),Bld 1319 U/L (100-240)
--- NOTE | 2020-05-09 12:06 | NUR ---
LAB RESULTS FROM TODAY FAXED TO DR. ELISE'S OFFICE.
== END 2020-05-09 08:26 | disposition home or self-care (01) ==
LOC: ATC 00:17
PROVIDERS: Internal Medicine Hematology & Oncology
DX: C85.14 Unspecified B-cell lymphoma, lymph nodes of axilla and upper limb (principal); C83.31 Diffuse large B-cell lymphoma, lymph nodes of head, face, and neck
CPT/HCPCS: 36592; 80053; 83615; 84100; 84550; 85025

== ENCOUNTER 2020-05-12 00:13 | Day surgery (SDC) | payer BC, OTHER ==
--- NOTE | 2020-05-12 09:18 | NUR ---
PTS BP ELEVATED. PT ASYMPTOMATIC. PT TOOK BP MED AT 0700 THIS AM. PT DID STATE THAT HE CHUGGED A LARGE [place] BROS COFFEE PRIOR TO COMING IN TO APPOINTMENT. BP NUMBERS GIVEN TO PT AND PT IS GOING TO CALL MD WITH THE NUMBERS. PT ADVISED TO GO TO ER IF HE BECOMES SYMPTOMATIC. POSSIBLE ELEVATED BP SYMPTOMS DISCUSSED WITH PT. PT VERBALIZED UNDERSTANDING
[2020-05-12 09:42] LABS: Hematocrit 39.4 % (37.0-53.0); Hemoglobin 13.5 g/dL (13.5-17.5); Mean Corpuscular HGB 30.3 pg (26.0-34.0); Mean Corpuscular HGB Conc 34.3 g/dL (31.5-36.5); Mean Corpuscular Volume 88 fL (80-100); Mean Platelet Volume 10.4 fL (9.1-12.4); NRBC ABSOLUTE 2.49 K/mm3 (0.00-0.02); NRBC Auto 9.5 /100 WBC (0.0-0.2); Platelet Count 170 K/mm3 (150-400); RDW Coefficient Variation 17.8 % (11.7-14.2); RDW Standard Deviation 50.7 fL (35.1-46.3); Red Blood Cell Count 4.46 M/mm3 (4.30-5.90); White Blood Cell Count 26.21 K/mm3 (4.00-11.30)
[2020-05-12 10:04] LABS: Alanine Aminotransfer (ALT/SGP 111 U/L (12-78); Albumin, Blood 3.6 g/dL (3.4-5.0); Alk Phos 146 U/L (50-136); Anion Gap 8 mmol/L (6-16); Aspartate Aminotrans (AST/SGOT 47 U/L (12-37); Bilirubin, Total 0.3 mg/dL (0.1-1.0); Blood Urea Nitrogen 14 mg/dL (8-24); Bun/Creatinine Ratio 17.5 (12.0-20.0); CO2, Blood 27 mmol/L (21-32); Chloride, Blood 108 mmol/L (98-108); Globulin, Blood 3.6 g/dL (2.2-4.0); Glomerular Filtration Rate >60 (60-); Glucose, Blood 126 mg/dL (70-99); Lactate Dehydrogenase (Ld),Bld 779 U/L (100-240); Phosphorus, Blood 4.4 mg/dL (2.5-4.9); Potassium, Blood 3.6 mmol/L (3.5-5.5); Sodium, Blood 143 mmol/L (136-145); Total Protein, Blood 7.2 g/dL (6.4-8.2); Uric Acid, Blood 7.7 mg/dL (3.5-7.2)
[2020-05-12 10:40] LABS: BAND PERCENT MAN 4 % (0-8); BASOPHILS PERCENT MAN 0 % (0-2); EOSINOPHILS ABSOLUTE MAN 0.26 K/mm3 (0.00-0.68); EOSINOPHILS PERCENT MAN 1 % (0-6); LYMPHOCYTES PERCENT MAN 21 % (21-46); METAMYELOCYTE ABSOLUTE MAN 2.62 K/mm3 (0.00-0.00); METAMYELOCYTE PERCENT MAN 10 % (0-0); MONOCYTES PERCENT MAN 13 % (4-13); MYELOCYTE ABSOLUTE MAN 1.31 K/mm3 (0.00-0.00); MYELOCYTE PERCENT MAN 5 % (0-0); SEG NEUTROPHILS PERCENT MAN 46 % (41-73); TOTAL CELLS COUNTED 100
--- NOTE | 2020-05-12 10:54 | NUR ---
LAB RESULTS FAXED TO DR ELISE AT [facility]
== END 2020-05-12 09:15 | disposition home or self-care (01) ==
LOC: ATC 00:13
PROVIDERS: Internal Medicine Hematology & Oncology
DX: C85.14 Unspecified B-cell lymphoma, lymph nodes of axilla and upper limb (principal); C83.31 Diffuse large B-cell lymphoma, lymph nodes of head, face, and neck
CPT/HCPCS: 36592; 80053; 83615; 84100; 84550; 85025

== ENCOUNTER 2020-05-23 08:28 | Day surgery (SDC) | payer BC, OTHER ==
--- NOTE | 2020-05-23 08:55 | NUR ---
JERRY NOT DRAWN FOR LABS TODAY. STATES HE IS GOING DR. KEYES OFFICE AND FOR AN APPOINTMENT AFTER LEAVING HERE AND THEY ARE GOING TO DRAW IT.
== END 2020-05-23 08:49 | disposition home or self-care (01) ==
LOC: ATC 08:28
DX: C85.14 Unspecified B-cell lymphoma, lymph nodes of axilla and upper limb (principal); C83.31 Diffuse large B-cell lymphoma, lymph nodes of head, face, and neck
CPT/HCPCS: 99212

== ENCOUNTER → 2020-05-27 | Outpatient (CLI) | payer BC, OTHER ==
[~2020-05-27] MED LIST changes: +Bentyl20 MG PO; +DICY20 PO; +ELIQUIS5 M3 PO; +ELIQUIS5 MG PO; +LIDO5TO TOP
[2020-05-27 16:17] LABS: Alanine Aminotransfer (ALT/SGP 86 U/L (12-78); Albumin, Blood 3.4 g/dL (3.4-5.0); Albumin/Globulin Ratio 1.3 (0.8-1.8); Alk Phos 100 U/L (50-136); Anion Gap 6 mmol/L (6-16); Aspartate Aminotrans (AST/SGOT 34 U/L (12-37); Bilirubin, Total 0.4 mg/dL (0.1-1.0); Blood Urea Nitrogen 12 mg/dL (8-24); Bun/Creatinine Ratio 15.9 (12.0-20.0); CO2, Blood 27 mmol/L (21-32); Calcium, Blood 8.4 mg/dL (8.5-10.1); Chloride, Blood 109 mmol/L (98-108); Creatinine, Blood 0.76 mg/dL (0.60-1.20); Globulin, Blood 2.7 g/dL (2.2-4.0); Glomerular Filtration Rate >60 (60-); Glucose, Blood 137 mg/dL (70-99); Lactate Dehydrogenase (Ld),Bld 193 U/L (100-240); Magnesium, Blood 2.4 mg/dL (1.6-2.4); Phosphorus, Blood 2.3 mg/dL (2.5-4.9); Potassium, Blood 3.6 mmol/L (3.5-5.5); Sodium, Blood 142 mmol/L (136-145); Total Protein, Blood 6.1 g/dL (6.4-8.2); Uric Acid, Blood 5.5 mg/dL (3.5-7.2)
== END | disposition home or self-care (01) ==
LOC: LAB SHORT 09:20 → LAB 09:20
PROVIDERS: Internal Medicine Hematology & Oncology
DX: C85.14 Unspecified B-cell lymphoma, lymph nodes of axilla and upper limb (principal); C85.91 Non-Hodgkin lymphoma, unspecified, lymph nodes of head, face, and neck; C83.71 Burkitt lymphoma, lymph nodes of head, face, and neck; I10 Essential (primary) hypertension
CPT/HCPCS: 80053; 83615; 83735; 84100; 84550

== ENCOUNTER 2020-05-30 00:10 | Day surgery (SDC) | payer BC, OTHER ==
[~2020-05-30 00:10] MED LIST changes: -Bentyl20 MG PO; -DICY20 PO; -ELIQUIS5 M3 PO; -ELIQUIS5 MG PO; -LIDO5TO TOP
[2020-05-30 09:19] LABS: Hematocrit 34.1 % (37.0-53.0); Hemoglobin 11.5 g/dL (13.5-17.5); Mean Corpuscular HGB 30.7 pg (26.0-34.0); Mean Corpuscular HGB Conc 33.7 g/dL (31.5-36.5); Mean Corpuscular Volume 91 fL (80-100); Mean Platelet Volume 10.8 fL (9.1-12.4); NRBC ABSOLUTE 2.02 K/mm3 (0.00-0.02); NRBC Auto 10.3 /100 WBC (0.0-0.2); Platelet Count 178 K/mm3 (150-400); RDW Coefficient Variation 20.5 % (11.7-14.2); RDW Standard Deviation 63.1 fL (35.1-46.3); Red Blood Cell Count 3.75 M/mm3 (4.30-5.90); White Blood Cell Count 19.52 K/mm3 (4.00-11.30)
[2020-05-30 09:38] LABS: Alanine Aminotransfer (ALT/SGP 153 U/L (12-78); Albumin, Blood 3.3 g/dL (3.4-5.0); Alk Phos 107 U/L (50-136); Anion Gap 4 mmol/L (6-16); Aspartate Aminotrans (AST/SGOT 115 U/L (12-37); Bilirubin, Total 0.4 mg/dL (0.1-1.0); Blood Urea Nitrogen 13 mg/dL (8-24); Bun/Creatinine Ratio 18.1 (12.0-20.0); CO2, Blood 28 mmol/L (21-32); Calcium, Blood 8.6 mg/dL (8.5-10.1); Chloride, Blood 112 mmol/L (98-108); Creatinine, Blood 0.72 mg/dL (0.60-1.20); Globulin, Blood 3.4 g/dL (2.2-4.0); Glomerular Filtration Rate >60 (60-); Glucose, Blood 139 mg/dL (70-99); Lactate Dehydrogenase (Ld),Bld 797 U/L (100-240); Phosphorus, Blood 3.9 mg/dL (2.5-4.9); Potassium, Blood 3.5 mmol/L (3.5-5.5); Sodium, Blood 144 mmol/L (136-145); Total Protein, Blood 6.7 g/dL (6.4-8.2); Uric Acid, Blood 7.8 mg/dL (3.5-7.2)
[2020-05-30 10:05] LABS: BAND PERCENT MAN 13 % (0-8); BASOPHILS ABSOLUTE MAN 0.19 K/mm3 (0.00-0.23); BASOPHILS PERCENT MAN 1 % (0-2); EOSINOPHILS ABSOLUTE MAN 0.58 K/mm3 (0.00-0.68); EOSINOPHILS PERCENT MAN 3 % (0-6); LYMPHOCYTES ABSOLUTE MAN 4.68 K/mm3 (0.84-5.20); LYMPHOCYTES PERCENT MAN 24 % (21-46); METAMYELOCYTE ABSOLUTE MAN 1.75 K/mm3 (0.00-0.00); METAMYELOCYTE PERCENT MAN 9 % (0-0); MONOCYTES ABSOLUTE MAN 2.53 K/mm3 (0.16-1.47); MONOCYTES PERCENT MAN 13 % (4-13); MYELOCYTE ABSOLUTE MAN 2.53 K/mm3 (0.00-0.00); MYELOCYTE PERCENT MAN 13 % (0-0); NEUTROPHILS ABSOLUTE MAN 6.44 K/mm3 (1.96-9.15); PROMYELOCYTE ABSOLUTE MAN 0.78 K/mm3 (0.00-0.00); PROMYELOCYTE PERCENT MAN 4 % (0-0); SEG NEUTROPHILS PERCENT MAN 20 % (41-73); TOTAL CELLS COUNTED 100
== END 2020-05-30 09:15 | disposition home or self-care (01) ==
LOC: ATC 00:10
PROVIDERS: Internal Medicine Hematology & Oncology
DX: C83.31 Diffuse large B-cell lymphoma, lymph nodes of head, face, and neck (principal)
CPT/HCPCS: 36592; 80053; 83615; 84100; 84550; 85025

== ENCOUNTER → 2020-06-02 | Outpatient (CLI) | payer BC, OTHER ==
[2020-06-02 19:44] LABS: Alanine Aminotransfer (ALT/SGP 116 U/L (12-78); Albumin, Blood 3.6 g/dL (3.4-5.0); Albumin/Globulin Ratio 1.3 (0.8-1.8); Alk Phos 114 U/L (50-136); Anion Gap 5 mmol/L (6-16); Aspartate Aminotrans (AST/SGOT 48 U/L (12-37); Bilirubin, Total 0.3 mg/dL (0.1-1.0); Blood Urea Nitrogen 11 mg/dL (8-24); Bun/Creatinine Ratio 14.5 (12.0-20.0); CO2, Blood 26 mmol/L (21-32); Calcium, Blood 8.4 mg/dL (8.5-10.1); Chloride, Blood 111 mmol/L (98-108); Creatinine, Blood 0.76 mg/dL (0.60-1.20); Globulin, Blood 2.8 g/dL (2.2-4.0); Glomerular Filtration Rate >60 (60-); Glucose, Blood 100 mg/dL (70-99); Lactate Dehydrogenase (Ld),Bld 486 U/L (100-240); Phosphorus, Blood 4.5 mg/dL (2.5-4.9); Potassium, Blood 4.2 mmol/L (3.5-5.5); Sodium, Blood 142 mmol/L (136-145); Total Protein, Blood 6.4 g/dL (6.4-8.2); Uric Acid, Blood 6.4 mg/dL (3.5-7.2)
== END | disposition home or self-care (01) ==
LOC: LAB SHORT 17:42 → LAB 17:42
PROVIDERS: Internal Medicine Hematology & Oncology
DX: C85.14 Unspecified B-cell lymphoma, lymph nodes of axilla and upper limb (principal)
CPT/HCPCS: 80053; 83615; 84100; 84550

== ENCOUNTER 2020-06-13 00:36 | Day surgery (SDC) | payer BC, OTHER | END 2020-06-13 08:51 | disposition home or self-care (01) | LOC: ATC 00:36 | DX: C85.14 Unspecified B-cell lymphoma, lymph nodes of axilla and upper limb (principal); C83.31 Diffuse large B-cell lymphoma, lymph nodes of head, face, and neck | CPT/HCPCS: 36592; 80053; 83615; 84100; 84550; 85025 ==

== ENCOUNTER 2020-06-16 00:40 | Day surgery (SDC) | payer BC, OTHER ==
[2020-06-16 09:48] LABS: BASOPHILS ABSOLUTE AUTO 0.05 K/mm3 (0.00-0.23); BASOPHILS PERCENT AUTO 1 % (0-2); EOSINOPHILS ABSOLUTE AUTO 0.09 K/mm3 (0.00-0.68); EOSINOPHILS PERCENT AUTO 2 % (0-6); Hematocrit 32.3 % (37.0-53.0); Hemoglobin 10.8 g/dL (13.5-17.5); Mean Corpuscular HGB 31.7 pg (26.0-34.0); Mean Corpuscular HGB Conc 33.4 g/dL (31.5-36.5); Mean Corpuscular Volume 95 fL (80-100); Platelet Count 118 K/mm3 (150-400); RDW Coefficient Variation 19.5 % (11.7-14.2); RDW Standard Deviation 66.9 fL (35.1-46.3); Red Blood Cell Count 3.41 M/mm3 (4.30-5.90); White Blood Cell Count 5.89 K/mm3 (4.00-11.30)
[2020-06-16 10:00] LABS: IMMATURE GRAN ABSOLUTE AUTO 0.55 K/mm3 (0.00-0.10); IMMATURE GRAN PERCENT AUTO 9 % (0-1); LYMPHOCYTES ABSOLUTE AUTO 1.32 K/mm3 (0.84-5.20); LYMPHOCYTES PERCENT AUTO 22 % (21-46); MONOCYTES ABSOLUTE AUTO 0.06 K/mm3 (0.16-1.47); MONOCYTES PERCENT AUTO 1 % (4-13); NEUTROPHILS ABSOLUTE AUTO 3.82 K/mm3 (1.96-9.15); NEUTROPHILS PERCENT AUTO 65 % (41-73)
[2020-06-16 10:03] LABS: Alanine Aminotransfer (ALT/SGP 29 U/L (12-78); Albumin, Blood 3.3 g/dL (3.4-5.0); Albumin/Globulin Ratio 1.1 (0.8-1.8); Alk Phos 77 U/L (50-136); Anion Gap 4 mmol/L (6-16); Aspartate Aminotrans (AST/SGOT 11 U/L (12-37); Bilirubin, Total 0.6 mg/dL (0.1-1.0); Blood Urea Nitrogen 12 mg/dL (8-24); Bun/Creatinine Ratio 16.8 (12.0-20.0); CO2, Blood 28 mmol/L (21-32); Chloride, Blood 110 mmol/L (98-108); Creatinine, Blood 0.71 mg/dL (0.60-1.20); Glomerular Filtration Rate >60 (60-); Glucose, Blood 100 mg/dL (70-99); Lactate Dehydrogenase (Ld),Bld 206 U/L (100-240); Phosphorus, Blood 3.7 mg/dL (2.5-4.9); Potassium, Blood 3.9 mmol/L (3.5-5.5); Sodium, Blood 142 mmol/L (136-145); Total Protein, Blood 6.3 g/dL (6.4-8.2); Uric Acid, Blood 4.6 mg/dL (3.5-7.2)
--- NOTE | 2020-06-16 10:35 | NUR ---
TODAYS LABS FAXED TO DR. ANDERSON.
== END 2020-06-16 08:56 | disposition home or self-care (01) ==
LOC: ATC 00:40
PROVIDERS: Internal Medicine Hematology & Oncology
DX: C83.38 Diffuse large B-cell lymphoma, lymph nodes of multiple sites (principal)
CPT/HCPCS: 36592; 80053; 83615; 84100; 84550; 85025

== ENCOUNTER 2020-06-20 00:04 | Day surgery (SDC) | payer BC, OTHER ==
[2020-06-20 09:02] LABS: Hematocrit 31.9 % (37.0-53.0); Hemoglobin 10.8 g/dL (13.5-17.5); Mean Corpuscular HGB Conc 33.9 g/dL (31.5-36.5); Mean Corpuscular Volume 95 fL (80-100); Mean Platelet Volume 11.5 fL (9.1-12.4); NRBC Auto 3.2 /100 WBC (0.0-0.2); Platelet Count 123 K/mm3 (150-400); RDW Standard Deviation 66.5 fL (35.1-46.3); Red Blood Cell Count 3.37 M/mm3 (4.30-5.90); White Blood Cell Count 25.93 K/mm3 (4.00-11.30)
[2020-06-20 09:15] LABS: Alanine Aminotransfer (ALT/SGP 32 U/L (12-78); Albumin, Blood 3.4 g/dL (3.4-5.0); Alk Phos 105 U/L (50-136); Anion Gap 4 mmol/L (6-16); Aspartate Aminotrans (AST/SGOT 37 U/L (12-37); Bilirubin, Total 0.4 mg/dL (0.1-1.0); Blood Urea Nitrogen 7 mg/dL (8-24); Bun/Creatinine Ratio 8.1 (12.0-20.0); CO2, Blood 28 mmol/L (21-32); Calcium, Blood 8.6 mg/dL (8.5-10.1); Chloride, Blood 108 mmol/L (98-108); Creatinine, Blood 0.87 mg/dL (0.60-1.20); Globulin, Blood 3.3 g/dL (2.2-4.0); Glomerular Filtration Rate >60 (60-); Glucose, Blood 94 mg/dL (70-99); Lactate Dehydrogenase (Ld),Bld 936 U/L (100-240); Potassium, Blood 3.5 mmol/L (3.5-5.5); Sodium, Blood 140 mmol/L (136-145); Total Protein, Blood 6.7 g/dL (6.4-8.2); Uric Acid, Blood 6.7 mg/dL (3.5-7.2)
[2020-06-20 09:45] LABS: BAND PERCENT MAN 12 % (0-8); BASOPHILS ABSOLUTE MAN 0.25 K/mm3 (0.00-0.23); BASOPHILS PERCENT MAN 1 % (0-2); EOSINOPHILS ABSOLUTE MAN 0.51 K/mm3 (0.00-0.68); EOSINOPHILS PERCENT MAN 2 % (0-6); LYMPHOCYTES ABSOLUTE MAN 4.66 K/mm3 (0.84-5.20); LYMPHOCYTES PERCENT MAN 18 % (21-46); METAMYELOCYTE ABSOLUTE MAN 0.51 K/mm3 (0.00-0.00); METAMYELOCYTE PERCENT MAN 2 % (0-0); MONOCYTES ABSOLUTE MAN 3.88 K/mm3 (0.16-1.47); MONOCYTES PERCENT MAN 15 % (4-13); MYELOCYTE ABSOLUTE MAN 1.81 K/mm3 (0.00-0.00); MYELOCYTE PERCENT MAN 7 % (0-0); NEUTROPHILS ABSOLUTE MAN 13.22 K/mm3 (1.96-9.15); PROMYELOCYTE ABSOLUTE MAN 1.03 K/mm3 (0.00-0.00); PROMYELOCYTE PERCENT MAN 4 % (0-0); SEG NEUTROPHILS PERCENT MAN 39 % (41-73); TOTAL CELLS COUNTED 100
--- NOTE | 2020-06-20 10:20 | NUR ---
LAB RESULTS FROM TODAY FAXED TO DR. ELISE'S OFFICE.
== END 2020-06-20 08:48 | disposition home or self-care (01) ==
LOC: ATC 00:04
PROVIDERS: Internal Medicine Hematology & Oncology
DX: C85.14 Unspecified B-cell lymphoma, lymph nodes of axilla and upper limb (principal); C83.31 Diffuse large B-cell lymphoma, lymph nodes of head, face, and neck; Z45.2 Encounter for adjustment and management of vascular access device
CPT/HCPCS: 80053; 83615; 84100; 84550; 85025

== ENCOUNTER 2020-07-04 00:38 | Day surgery (SDC) | payer BC, OTHER ==
[2020-07-04 09:20] LABS: BASOPHILS ABSOLUTE AUTO 0.11 K/mm3 (0.00-0.23); BASOPHILS PERCENT AUTO 3 % (0-2); EOSINOPHILS ABSOLUTE AUTO 0.01 K/mm3 (0.00-0.68); EOSINOPHILS PERCENT AUTO 0 % (0-6); Hematocrit 32.4 % (37.0-53.0); Hemoglobin 10.9 g/dL (13.5-17.5); IMMATURE GRAN ABSOLUTE AUTO 0.02 K/mm3 (0.00-0.10); IMMATURE GRAN PERCENT AUTO 1 % (0-1); LYMPHOCYTES ABSOLUTE AUTO 1.56 K/mm3 (0.84-5.20); LYMPHOCYTES PERCENT AUTO 47 % (21-46); MONOCYTES ABSOLUTE AUTO 0.07 K/mm3 (0.16-1.47); MONOCYTES PERCENT AUTO 2 % (4-13); Mean Corpuscular HGB 32.2 pg (26.0-34.0); Mean Corpuscular HGB Conc 33.6 g/dL (31.5-36.5); Mean Corpuscular Volume 96 fL (80-100); Mean Platelet Volume 9.4 fL (9.1-12.4); NEUTROPHILS ABSOLUTE AUTO 1.56 K/mm3 (1.96-9.15); NEUTROPHILS PERCENT AUTO 47 % (41-73); Platelet Count 345 K/mm3 (150-400); RDW Coefficient Variation 19.9 % (11.7-14.2); RDW Standard Deviation 69.4 fL (35.1-46.3); Red Blood Cell Count 3.39 M/mm3 (4.30-5.90); White Blood Cell Count 3.33 K/mm3 (4.00-11.30)
[2020-07-04 09:44] LABS: Alanine Aminotransfer (ALT/SGP 23 U/L (12-78); Albumin, Blood 3.4 g/dL (3.4-5.0); Albumin/Globulin Ratio 1.1 (0.8-1.8); Alk Phos 72 U/L (50-136); Anion Gap 7 mmol/L (6-16); Aspartate Aminotrans (AST/SGOT 13 U/L (12-37); Bilirubin, Total 0.4 mg/dL (0.1-1.0); Blood Urea Nitrogen 19 mg/dL (8-24); Bun/Creatinine Ratio 27.7 (12.0-20.0); CO2, Blood 27 mmol/L (21-32); Calcium, Blood 8.5 mg/dL (8.5-10.1); Chloride, Blood 108 mmol/L (98-108); Creatinine, Blood 0.69 mg/dL (0.60-1.20); Globulin, Blood 3.1 g/dL (2.2-4.0); Glomerular Filtration Rate >60 (60-); Glucose, Blood 111 mg/dL (70-99); Lactate Dehydrogenase (Ld),Bld 265 U/L (100-240); Potassium, Blood 3.7 mmol/L (3.5-5.5); Sodium, Blood 142 mmol/L (136-145); Total Protein, Blood 6.5 g/dL (6.4-8.2); Uric Acid, Blood 4.2 mg/dL (3.5-7.2)
== END 2020-07-04 08:45 | disposition home or self-care (01) ==
LOC: ATC 00:38
PROVIDERS: Internal Medicine Hematology & Oncology
DX: C85.14 Unspecified B-cell lymphoma, lymph nodes of axilla and upper limb (principal); C83.31 Diffuse large B-cell lymphoma, lymph nodes of head, face, and neck
CPT/HCPCS: 36592; 80053; 83615; 84100; 84550; 85025

== ENCOUNTER 2020-07-07 00:33 | Day surgery (SDC) | payer BC, OTHER ==
[2020-07-07 15:34] LABS: Hematocrit 30.4 % (37.0-53.0); Hemoglobin 10.2 g/dL (13.5-17.5); Mean Corpuscular HGB 32.4 pg (26.0-34.0); Mean Corpuscular HGB Conc 33.6 g/dL (31.5-36.5); Mean Corpuscular Volume 97 fL (80-100); Mean Platelet Volume 9.9 fL (9.1-12.4); Platelet Count 77 K/mm3 (150-400); RDW Coefficient Variation 18.8 % (11.7-14.2); RDW Standard Deviation 66.3 fL (35.1-46.3); Red Blood Cell Count 3.15 M/mm3 (4.30-5.90); White Blood Cell Count 1.18 K/mm3 (4.00-11.30)
[2020-07-07 15:52] LABS: Alanine Aminotransfer (ALT/SGP 23 U/L (12-78); Albumin, Blood 3.5 g/dL (3.4-5.0); Albumin/Globulin Ratio 1.1 (0.8-1.8); Alk Phos 86 U/L (50-136); Anion Gap 5 mmol/L (6-16); Aspartate Aminotrans (AST/SGOT 13 U/L (12-37); Bilirubin, Total 0.5 mg/dL (0.1-1.0); Blood Urea Nitrogen 17 mg/dL (8-24); Bun/Creatinine Ratio 21.8 (12.0-20.0); CO2, Blood 27 mmol/L (21-32); Calcium, Blood 8.2 mg/dL (8.5-10.1); Chloride, Blood 107 mmol/L (98-108); Creatinine, Blood 0.78 mg/dL (0.60-1.20); Globulin, Blood 3.2 g/dL (2.2-4.0); Glomerular Filtration Rate >60 (60-); Glucose, Blood 149 mg/dL (70-99); Lactate Dehydrogenase (Ld),Bld 200 U/L (100-240); Potassium, Blood 3.6 mmol/L (3.5-5.5); Sodium, Blood 139 mmol/L (136-145); Total Protein, Blood 6.7 g/dL (6.4-8.2); Uric Acid, Blood 4.6 mg/dL (3.5-7.2)
[2020-07-07 16:01] LABS: BASOPHILS ABSOLUTE MAN 0.03 K/mm3 (0.00-0.23); BASOPHILS PERCENT MAN 3 % (0-2); EOSINOPHILS ABSOLUTE MAN 0.01 K/mm3 (0.00-0.68); EOSINOPHILS PERCENT MAN 1 % (0-6); LYMPHOCYTES ABSOLUTE MAN 0.89 K/mm3 (0.84-5.20); LYMPHOCYTES PERCENT MAN 76 % (21-46); MONOCYTES ABSOLUTE MAN 0.01 K/mm3 (0.16-1.47); MONOCYTES PERCENT MAN 1 % (4-13); NEUTROPHILS ABSOLUTE MAN 0.22 K/mm3 (1.96-9.15); SEG NEUTROPHILS PERCENT MAN 19 % (41-73); TOTAL CELLS COUNTED 100
[2020-07-07] MEDS ORDERED: ELIQUIS5 MG PO (16:39)
--- NOTE | 2020-07-07 16:45 | NUR ---
PT STS HE IS ON ELOQUIS R/T BLOOD CLOTS IN HIS DANI "AROUND HIS PICC". STS THAT THIS WAS THE CHOSEN TX OVER REMOVING THE PICC. NO SWELLING OR REDNESS NOTED AROUND OR DISTALL TO THE PICC. LABS FAXED TO DR ELISE
[2020-07-07] MEDS ORDERED: PROC5 PO (18:00)
[2020-07-07] MEDS ORDERED: DICY20 PO (21:49)
== END 2020-07-07 14:20 | disposition home or self-care (01) ==
LOC: ATC 00:33
PROVIDERS: Internal Medicine Hematology & Oncology
DX: C85.14 Unspecified B-cell lymphoma, lymph nodes of axilla and upper limb (principal); C83.31 Diffuse large B-cell lymphoma, lymph nodes of head, face, and neck
CPT/HCPCS: 36592; 80053; 83615; 84100; 84550; 85025

== ENCOUNTER 2020-07-07 17:25 | Emergency (ER) | payer BC, OTHER ==
[~2020-07-07] VITALS: Ht 180.3 cm; Wt 122.5 kg
[~2020-07-07 17:25] MED LIST changes: +ELIQUIS5 MG PO
[2020-07-07] MEDS ORDERED: PROC5 PO (18:00)
[2020-07-07 18:18] LABS: BASOPHILS ABSOLUTE AUTO 0.03 K/mm3 (0.00-0.23); BASOPHILS PERCENT AUTO 3 % (0-2); EOSINOPHILS ABSOLUTE AUTO 0.01 K/mm3 (0.00-0.68); EOSINOPHILS PERCENT AUTO 1 % (0-6); Hematocrit 30.4 % (37.0-53.0); Hemoglobin 10.3 g/dL (13.5-17.5); Mean Corpuscular HGB 32.6 pg (26.0-34.0); Mean Corpuscular HGB Conc 33.9 g/dL (31.5-36.5); Mean Corpuscular Volume 96 fL (80-100); Mean Platelet Volume 9.7 fL (9.1-12.4); Platelet Count 76 K/mm3 (150-400); RDW Coefficient Variation 18.6 % (11.7-14.2); RDW Standard Deviation 65.5 fL (35.1-46.3); Red Blood Cell Count 3.16 M/mm3 (4.30-5.90); White Blood Cell Count 1.19 K/mm3 (4.00-11.30)
[2020-07-07 18:21] LABS: IMMATURE GRAN PERCENT AUTO 0 % (0-1); LYMPHOCYTES ABSOLUTE AUTO 0.93 K/mm3 (0.84-5.20); LYMPHOCYTES PERCENT AUTO 78 % (21-46); MONOCYTES ABSOLUTE AUTO 0.04 K/mm3 (0.16-1.47); MONOCYTES PERCENT AUTO 3 % (4-13); NEUTROPHILS ABSOLUTE AUTO 0.18 K/mm3 (1.96-9.15); NEUTROPHILS PERCENT AUTO 15 % (41-73)
[2020-07-07 19:11] LABS: Alanine Aminotransfer (ALT/SGP 24 U/L (12-78); Albumin, Blood 3.6 g/dL (3.4-5.0); Albumin/Globulin Ratio 1.1 (0.8-1.8); Alk Phos 85 U/L (50-136); Anion Gap 7 mmol/L (6-16); Aspartate Aminotrans (AST/SGOT 15 U/L (12-37); Bilirubin, Total 0.4 mg/dL (0.1-1.0); Blood Urea Nitrogen 16 mg/dL (8-24); Bun/Creatinine Ratio 22.6 (12.0-20.0); CO2, Blood 25 mmol/L (21-32); Calcium, Blood 8.4 mg/dL (8.5-10.1); Chloride, Blood 108 mmol/L (98-108); Creatinine, Blood 0.71 mg/dL (0.60-1.20); Globulin, Blood 3.2 g/dL (2.2-4.0); Glomerular Filtration Rate >60 (60-); Glucose, Blood 118 mg/dL (70-99); Potassium, Blood 3.8 mmol/L (3.5-5.5); Sodium, Blood 140 mmol/L (136-145); Total Protein, Blood 6.8 g/dL (6.4-8.2); Troponin I <0.015 ng/mL (0.000-0.040)
[2020-07-07 21:09] LABS: Source, Urine Clean Catch
[2020-07-07 21:11] LABS: Bilirubin, Urine Neg (Neg); Blood, Urine Neg (Neg); Glucose Qualitative, Urine Neg (Neg); Ketones, Urine Neg (Neg); Leukocyte Esterase, Urine Neg (Neg); Nitrite, Urine Neg (Neg); Protein, Urine Neg (Neg); Specific Gravity, Urine 1.005 (1.003-1.022); Urobilinogen, Urine NORM (Normal)
[2020-07-07 21:18] LABS: Appearance, Urine Clear (Clear); Color, Urine Pale Yellow (P-Yellow)
[2020-07-07] MEDS ORDERED: DICY20 PO (21:49)
== END 2020-07-07 22:22 | disposition home or self-care (01) ==
LOC: ER 17:25
PROVIDERS: Emergency Medicine; Physician Assistant
DX: R10.32 Left lower quadrant pain (principal); E86.0 Dehydration; D61.818 Other pancytopenia
CPT/HCPCS: 71046; 74177; 80053; 81003; 83605; 83690; 84484; 85025; 93005; 93010; 96372-59; 96374; 96375; 99285-25; J0500; J2270; J2405; J7120; Q9967

== ENCOUNTER 2020-07-08 20:22 | Emergency (ER) | payer BC, OTHER ==
[~2020-07-08] VITALS: Ht 180.3 cm; Wt 124.7 kg
[~2020-07-08 20:22] MED LIST changes: +DICY20 PO
== END 2020-07-08 22:04 | disposition left against medical advice (07) ==
LOC: ER 20:22
DX: R50.9 Fever, unspecified (principal); R10.9 Unspecified abdominal pain; Z53.21 Procedure and treatment not carried out due to patient leaving prior to being seen by health care provider
CPT/HCPCS: 99282

== ENCOUNTER 2020-07-09 14:25 | Inpatient (IN) | payer BC, OTHER ==
[~2020-07-09] VITALS: Ht 180.3 cm; Wt 118.8 kg
[2020-07-09 15:47] LABS: BASOPHILS ABSOLUTE AUTO 0.02 K/mm3 (0.00-0.23); BASOPHILS PERCENT AUTO 2 % (0-2); EOSINOPHILS PERCENT AUTO 0 % (0-6); Hematocrit 29.2 % (37.0-53.0); Mean Corpuscular HGB 32.6 pg (26.0-34.0); Mean Corpuscular HGB Conc 34.2 g/dL (31.5-36.5); Mean Corpuscular Volume 95 fL (80-100); Mean Platelet Volume 10.5 fL (9.1-12.4); RDW Coefficient Variation 17.2 % (11.7-14.2); RDW Standard Deviation 60.4 fL (35.1-46.3); Red Blood Cell Count 3.07 M/mm3 (4.30-5.90)
[2020-07-09 15:58] LABS: Alanine Aminotransfer (ALT/SGP 21 U/L (12-78); Albumin, Blood 3.7 g/dL (3.4-5.0); Albumin/Globulin Ratio 1.2 (0.8-1.8); Alk Phos 86 U/L (50-136); Anion Gap 6 mmol/L (6-16); Aspartate Aminotrans (AST/SGOT 10 U/L (12-37); Bilirubin, Total 0.6 mg/dL (0.1-1.0); Blood Urea Nitrogen 14 mg/dL (8-24); Bun/Creatinine Ratio 16.4 (12.0-20.0); CO2, Blood 26 mmol/L (21-32); Calcium, Blood 8.6 mg/dL (8.5-10.1); Chloride, Blood 104 mmol/L (98-108); Creatinine, Blood 0.85 mg/dL (0.60-1.20); Globulin, Blood 3.2 g/dL (2.2-4.0); Glomerular Filtration Rate >60 (60-); Glucose, Blood 105 mg/dL (70-99); Potassium, Blood 3.5 mmol/L (3.5-5.5); Sodium, Blood 136 mmol/L (136-145); Total Protein, Blood 6.9 g/dL (6.4-8.2)
[2020-07-09 16:07] LABS: IMMATURE GRAN ABSOLUTE AUTO 0.02 K/mm3 (0.00-0.10); IMMATURE GRAN PERCENT AUTO 2 % (0-1); LYMPHOCYTES ABSOLUTE AUTO 0.89 K/mm3 (0.84-5.20); LYMPHOCYTES PERCENT AUTO 81 % (21-46); MONOCYTES ABSOLUTE AUTO 0.14 K/mm3 (0.16-1.47); MONOCYTES PERCENT AUTO 13 % (4-13); NEUTROPHILS ABSOLUTE AUTO 0.03 K/mm3 (1.96-9.15); NEUTROPHILS PERCENT AUTO 3 % (41-73)
[2020-07-09 16:09] LABS: Platelet Count 24 K/mm3 (150-400)
[2020-07-10 03:53] LABS: BASOPHILS ABSOLUTE AUTO 0.04 K/mm3 (0.00-0.23); BASOPHILS PERCENT AUTO 2 % (0-2); EOSINOPHILS PERCENT AUTO 0 % (0-6); Hematocrit 26.7 % (37.0-53.0); Hemoglobin 9.4 g/dL (13.5-17.5); Mean Corpuscular HGB 32.6 pg (26.0-34.0); Mean Corpuscular HGB Conc 35.2 g/dL (31.5-36.5); Mean Corpuscular Volume 93 fL (80-100); RDW Coefficient Variation 16.9 % (11.7-14.2); RDW Standard Deviation 57.5 fL (35.1-46.3); Red Blood Cell Count 2.88 M/mm3 (4.30-5.90); White Blood Cell Count 1.65 K/mm3 (4.00-11.30)
[2020-07-10 03:57] LABS: IMMATURE GRAN ABSOLUTE AUTO 0.01 K/mm3 (0.00-0.10); IMMATURE GRAN PERCENT AUTO 1 % (0-1); LYMPHOCYTES ABSOLUTE AUTO 1.18 K/mm3 (0.84-5.20); LYMPHOCYTES PERCENT AUTO 72 % (21-46); MONOCYTES ABSOLUTE AUTO 0.25 K/mm3 (0.16-1.47); MONOCYTES PERCENT AUTO 15 % (4-13); NEUTROPHILS ABSOLUTE AUTO 0.17 K/mm3 (1.96-9.15); NEUTROPHILS PERCENT AUTO 10 % (41-73)
[2020-07-10 03:58] LABS: Platelet Count 18 K/mm3 (150-400)
[2020-07-10 04:11] LABS: Alanine Aminotransfer (ALT/SGP 16 U/L (12-78); Albumin, Blood 3.1 g/dL (3.4-5.0); Alk Phos 70 U/L (50-136); Anion Gap 6 mmol/L (6-16); Aspartate Aminotrans (AST/SGOT 6 U/L (12-37); Bilirubin, Total 0.5 mg/dL (0.1-1.0); Blood Urea Nitrogen 7 mg/dL (8-24); Bun/Creatinine Ratio 9.4 (12.0-20.0); CO2, Blood 24 mmol/L (21-32); Calcium, Blood 7.5 mg/dL (8.5-10.1); Chloride, Blood 107 mmol/L (98-108); Creatinine, Blood 0.74 mg/dL (0.60-1.20); Globulin, Blood 3.2 g/dL (2.2-4.0); Glomerular Filtration Rate >60 (60-); Glucose, Blood 119 mg/dL (70-99); Potassium, Blood 3.5 mmol/L (3.5-5.5); Sodium, Blood 137 mmol/L (136-145); Total Protein, Blood 6.3 g/dL (6.4-8.2)
--- NOTE | 2020-07-10 05:33 | NUR ---
SHIFT SUMMARY PATIENT ADMITTED TO FLOOR AT APPROXIMETLY 2015 AND FOUND TO BE A&OX4, CARRANZA, AND FOLLOWING COMMANDS. GENERALIZED WEAKNESS AND DROWSINESS NOTED. LOW GRADE TEMP WITH TMAX 99.9. VSS. SR-ST IN LOW 100'S ON THE MONITOR. ON RA. PAINFUL THRUSH TO TONGUE WITH DECENT RELIEF WITH TYLENOL AND ADDITIONAL MAGIC MOUTHWASH ORDERED PRN. IV ABX AND FLUIDS INFUSING PER ORDER. UP AD ONEAL IN ROOM PATIENT KNOWS HIS LIMITS AND HAS TO PEE OFTEN. PICC LINE REMOVED AND CULTURE SENT TO LAB. NEUTROPENIC PRECAUTIONS IN PLACE. NO ACUTE CONCERNS AT THIS TIME. WILL CONTINUE TO MONITOR.
--- NOTE | 2020-07-10 12:05 | NUR ---
UPDATE PHYSICIAN NOTIFIED OF PT'S PAIN IN MOUTH RATING 6/10. PT STATES NO CURRENT TREATMENT HAS IMPROVED PAIN LEVEL. ORDERS TO BE GIVEN PER EMAR. PT STATES HE TAKES CLARITIN AT HOME. PHYSICIAN NOTIFIED.
--- NOTE | 2020-07-10 14:51 | NUR ---
UPDATE PT REFUSING SCD'S AT THIS TIME. PT AWARE OF INCREASED RISK OF DVT D/T THE BLOOD THINNER BEING HELD AT THIS TIME. PT STATES HE "WILL WALK AROUND ROOM FREQUENTLY." PHYSICIAN NOTIFIED.
--- NOTE | 2020-07-10 16:35 | NUR ---
PHARMACY UPDATED PHARMACY INFORMED PT HAD NO IV ACCESS AND VANCOMYCIN BEGAN AT 4 PM INSTEAD OF 1 PM D/T NO ACCESS. PHARMACY TO ADJUST TIME/VANCO TROUGH.
--- NOTE | 2020-07-10 16:38 | NUR ---
UPDATE PHARMACY AWARE MAXIPIME TO RUN LATE D/T VANCO RUNNING LATE. NO CHANGES NEED TO BE MADE PER PHARMACY.
--- NOTE | 2020-07-10 17:56 | NUR ---
SHIFT SUMMARY PT ALERT AND ORIENTED X 4. HR STABLE. BP STABLE. PT REPORTS NO CP OR PRESSURE. OXYGEN SATURATION MAINTAINED ABOVE 92% ON RA. PT LOST IV ACCESS DURING SHIFT. PHYSICIAN NOTIFIED. CARYN JOSE ABLE TO INSERT IV AT 4 PM. PHARMACY NOTIFIED TO ADJUST VANCO NEEDED. PT REPORTS PAIN IN MOUTH D/T BLISTERS IN ORAL MUCOSA. MEDICATION ORDERED AND ADJUSTED BY PHYSICIAN, SEE EMAR. PT REPORTS RELIEF WITH THESE MEASURES. PT IND IN ROOM. WILL CONTINUE TO MONITOR UNTIL REPORT GIVEN TO NIGHTSHIFT CARYN.
[2020-07-11 04:00] LABS: Hematocrit 27.3 % (37.0-53.0); Hemoglobin 9.5 g/dL (13.5-17.5); Mean Corpuscular HGB Conc 34.8 g/dL (31.5-36.5); Mean Corpuscular Volume 95 fL (80-100); Mean Platelet Volume 12.3 fL (9.1-12.4); NRBC ABSOLUTE 0.02 K/mm3 (0.00-0.02); NRBC Auto 0.4 /100 WBC (0.0-0.2); RDW Coefficient Variation 17.1 % (11.7-14.2); RDW Standard Deviation 59.7 fL (35.1-46.3); Red Blood Cell Count 2.88 M/mm3 (4.30-5.90); White Blood Cell Count 4.99 K/mm3 (4.00-11.30)
[2020-07-11 04:03] LABS: BASOPHILS ABSOLUTE AUTO 0.04 K/mm3 (0.00-0.23); BASOPHILS PERCENT AUTO 1 % (0-2); EOSINOPHILS ABSOLUTE AUTO 0.02 K/mm3 (0.00-0.68); EOSINOPHILS PERCENT AUTO 0 % (0-6); IMMATURE GRAN ABSOLUTE AUTO 0.59 K/mm3 (0.00-0.10); IMMATURE GRAN PERCENT AUTO 12 % (0-1); LYMPHOCYTES ABSOLUTE AUTO 1.51 K/mm3 (0.84-5.20); LYMPHOCYTES PERCENT AUTO 30 % (21-46); MONOCYTES ABSOLUTE AUTO 1.27 K/mm3 (0.16-1.47); MONOCYTES PERCENT AUTO 26 % (4-13); NEUTROPHILS ABSOLUTE AUTO 1.56 K/mm3 (1.96-9.15); NEUTROPHILS PERCENT AUTO 31 % (41-73)
[2020-07-11 04:04] LABS: Platelet Count 29 K/mm3 (150-400)
[2020-07-11 04:19] LABS: Anion Gap 4 mmol/L (6-16); Blood Urea Nitrogen 8 mg/dL (8-24); Bun/Creatinine Ratio 10.2 (12.0-20.0); CO2, Blood 26 mmol/L (21-32); Calcium, Blood 7.9 mg/dL (8.5-10.1); Chloride, Blood 109 mmol/L (98-108); Creatinine, Blood 0.78 mg/dL (0.60-1.20); Glomerular Filtration Rate >60 (60-); Glucose, Blood 98 mg/dL (70-99); Potassium, Blood 3.6 mmol/L (3.5-5.5); Sodium, Blood 139 mmol/L (136-145)
[2020-07-11 04:20] LABS: BAND PERCENT MAN 13 % (0-8); BASOPHILS PERCENT MAN 0 % (0-2); EOSINOPHILS PERCENT MAN 0 % (0-6); LYMPHOCYTES % ATYPICAL MANUAL 1 % (0-0); LYMPHOCYTES ABSOLUTE MAN 1.74 K/mm3 (0.84-5.20); LYMPHOCYTES PERCENT MAN 34 % (21-46); METAMYELOCYTE ABSOLUTE MAN 0.24 K/mm3 (0.00-0.00); METAMYELOCYTE PERCENT MAN 5 % (0-0); MONOCYTES ABSOLUTE MAN 0.84 K/mm3 (0.16-1.47); MONOCYTES PERCENT MAN 17 % (4-13); MYELOCYTE ABSOLUTE MAN 0.09 K/mm3 (0.00-0.00); MYELOCYTE PERCENT MAN 2 % (0-0); NEUTROPHILS ABSOLUTE MAN 2.04 K/mm3 (1.96-9.15); SEG NEUTROPHILS PERCENT MAN 28 % (41-73); TOTAL CELLS COUNTED 100
--- NOTE | 2020-07-11 05:27 | NUR ---
SHIFT SUMMARY PATIENT A&0X4 AND MUCH MORE ALERT AND CONVERSIVE THAN LAST NIGHT. PAIN CONTROL REGIMEN WITH MAGIC MOUTHWASH Q2H AND TORADOL Q8 HELPING GREATLY WITH TONGUE PAIN/SWELLING AND PATIENT ABLE TO EAT MORE. VSS. ON RA. SR IN 80'S ON THE MONITOR. ABX INFUSE PER ORDER. UP AD ONEAL TO BATHROOM. EATING AND VOIDING WITHOUT ISSUE. WILL CONTINUE TO MONITOR UNTIL REPORT GIVEN TO DAY SHIFT RN.
--- NOTE | 2020-07-11 09:32 | NUR ---
pt sitting up in bed awake a/ox3, pleasant and cooperative with care, follows commands well, denies pain at this time, lungs are clear t/o, resp even and unlabored, no cough noted, hrr, no tele, no edema noted, ppp+1, cap refill <3sec, vs stable, afebrile, iv sites are clear and patent, btx4, abd flat soft notender, voids without diff, skin c/w/d, maew, jamin, call light in reach.
--- NOTE | 2020-07-11 09:51 | NUR ---
pt sitting up in bed a/ox3, pleasant and coopertive with care, follows commands well, denies pain at this time, lungs are clear t/o, resp even and unlabored, no cough noted, hrr, no edema noted, ppp+2, cap refill <3sec, vs stable, afebrile, iv sites are clear and patent, btx4, abd flat soft nontender, voids without diff, skin c/w/d, maew, jamin, call light in reach.
[2020-07-11 16:08] LABS: Vancomycin, Trough 15.4 ug/mL (5.0-10.0)
--- NOTE | 2020-07-11 16:48 | NUR ---
PT HAS BEEN TRANSFERED TO MEDICAL FLOOR, INFORMED PT. REPORT GIVEN TO ALESSIA RUBIN. PT WILL BE GOING VIA WHEELCHAIR WITH ECHOCARDIOGRAPHER IN ATTENDENCE WITH ALL BELONGINGS.
--- NOTE | 2020-07-11 18:27 | NUR ---
SHIFT SUMMARY PATIENT ARRIVED TO THE FLOOR LATE THIS SHIFT. PATIENT ALERT AND ORIENTED. PATIENT ARRIVED VIA WHEELCHAIR. PATIENT INDEPENDENT IN THE ROOM. PATIENT COOPERATIVE WITH CARE. IV ANTIBIOTICS RUNNING. PATIENT REPORTED BURNING IN HIS IV. REDNESS, APPROXIMATELY 3-4" UP FROM PATIENT'S IV. IV DETERMINED TO HAVE GONE BAD. IV REMOVED, ICE APPLIED TO AFFECTED AREA. NEW IV REPLACED. PATIENT WITHOUT FURTHER ISSUES. PATIENT CURRENTLY SITTING UP IN BED WATCHING TELEVISION.
[2020-07-12 05:11] LABS: Hematocrit 27.6 % (37.0-53.0); Hemoglobin 9.6 g/dL (13.5-17.5); Mean Corpuscular HGB 32.9 pg (26.0-34.0); Mean Corpuscular HGB Conc 34.8 g/dL (31.5-36.5); Mean Corpuscular Volume 95 fL (80-100); Mean Platelet Volume 11.7 fL (9.1-12.4); NRBC ABSOLUTE 0.13 K/mm3 (0.00-0.02); NRBC Auto 1.1 /100 WBC (0.0-0.2); Platelet Count 57 K/mm3 (150-400); RDW Coefficient Variation 17.5 % (11.7-14.2); RDW Standard Deviation 61.4 fL (35.1-46.3); Red Blood Cell Count 2.92 M/mm3 (4.30-5.90); White Blood Cell Count 11.67 K/mm3 (4.00-11.30)
[2020-07-12 05:31] LABS: Anion Gap 6 mmol/L (6-16); Blood Urea Nitrogen 8 mg/dL (8-24); Bun/Creatinine Ratio 9.5 (12.0-20.0); CO2, Blood 26 mmol/L (21-32); Calcium, Blood 8.1 mg/dL (8.5-10.1); Chloride, Blood 109 mmol/L (98-108); Creatinine, Blood 0.84 mg/dL (0.60-1.20); Glomerular Filtration Rate >60 (60-); Glucose, Blood 99 mg/dL (70-99); Potassium, Blood 3.5 mmol/L (3.5-5.5); Sodium, Blood 141 mmol/L (136-145)
[2020-07-12 05:42] LABS: EOSINOPHILS PERCENT MAN 0 % (0-6); TOTAL CELLS COUNTED 100
[2020-07-12 05:46] LABS: BAND PERCENT MAN 9 % (0-8); BASOPHILS ABSOLUTE MAN 0.23 K/mm3 (0.00-0.23); BASOPHILS PERCENT MAN 2 % (0-2); LYMPHOCYTES % ATYPICAL MANUAL 1 % (0-0); LYMPHOCYTES ABSOLUTE MAN 1.86 K/mm3 (0.84-5.20); LYMPHOCYTES PERCENT MAN 15 % (21-46); METAMYELOCYTE ABSOLUTE MAN 0.35 K/mm3 (0.00-0.00); METAMYELOCYTE PERCENT MAN 3 % (0-0); MONOCYTES ABSOLUTE MAN 1.86 K/mm3 (0.16-1.47); MONOCYTES PERCENT MAN 16 % (4-13); MYELOCYTE ABSOLUTE MAN 1.86 K/mm3 (0.00-0.00); MYELOCYTE PERCENT MAN 16 % (0-0); NEUTROPHILS ABSOLUTE MAN 5.25 K/mm3 (1.96-9.15); PROMYELOCYTE ABSOLUTE MAN 0.23 K/mm3 (0.00-0.00); PROMYELOCYTE PERCENT MAN 2 % (0-0); SEG NEUTROPHILS PERCENT MAN 36 % (41-73)
--- NOTE | 2020-07-12 06:07 | NUR ---
PT IS A/O, IND IN ROOM, LYMPHOMA WITH RECENT CHEMO TX. IND IN ROOM, NEUTROPENIC PRECAUTIONS. TONGUE ULCERS, MEDICATED WITH PRN BOTTLED LIDOCAIN SWISH AND SPIT PER EMAR.
--- NOTE | 2020-07-12 17:31 | NUR ---
Shift Summary, Patient is A/OX4 to person, place, time, and event. He is cooperative with his care. He has been recieving IV antibiotics per EMAR today. The patient has been using the oral nystatin r/t thrush per EMAR and stated it helps relieve the discomfort. The patient has been independent in the room and up to bathroom multiple times today. He has also walked around his room for exercise. The patient did not have any acute changes this shift. He is currently sitting in his bed resting.
--- NOTE | 2020-07-12 17:52 | NUR ---
STUDENT ASSESSMENT REVIEW I HAVE REVIEWED THE STUDENT'S ASSESSMENT, PERFORMED MY OWN ASSESSMENT, AND I AGREE WITH THE STUDENT'S FINDINGS.
[2020-07-13 07:28] LABS: Hematocrit 31.8 % (37.0-53.0); Hemoglobin 10.8 g/dL (13.5-17.5); Mean Corpuscular HGB 32.9 pg (26.0-34.0); Mean Corpuscular Volume 97 fL (80-100); NRBC ABSOLUTE 0.55 K/mm3 (0.00-0.02); NRBC Auto 2.8 /100 WBC (0.0-0.2); Platelet Count 141 K/mm3 (150-400); RDW Coefficient Variation 18.1 % (11.7-14.2); RDW Standard Deviation 64.3 fL (35.1-46.3); Red Blood Cell Count 3.28 M/mm3 (4.30-5.90); White Blood Cell Count 19.84 K/mm3 (4.00-11.30)
--- NOTE | 2020-07-13 07:33 | NUR ---
PUMP ATTENDANT SUMMARY Patient slept well overnight despite being woken by this RN providing his IV medications. Up independently in room, tolerating his Vancomycin and Unasyn without difficulty. Vanco trough drawn at 0700. Day RN awaiting results. No complaints of discomfort throughout the shift.
[2020-07-13 07:48] LABS: Anion Gap 4 mmol/L (6-16); Blood Urea Nitrogen 6 mg/dL (8-24); Bun/Creatinine Ratio 6.8 (12.0-20.0); CO2, Blood 29 mmol/L (21-32); Calcium, Blood 8.6 mg/dL (8.5-10.1); Chloride, Blood 108 mmol/L (98-108); Creatinine, Blood 0.89 mg/dL (0.60-1.20); Glomerular Filtration Rate >60 (60-); Glucose, Blood 113 mg/dL (70-99); Potassium, Blood 3.3 mmol/L (3.5-5.5); Sodium, Blood 141 mmol/L (136-145)
[2020-07-13 08:17] LABS: BAND PERCENT MAN 7 % (0-8); BASOPHILS ABSOLUTE MAN 0.19 K/mm3 (0.00-0.23); BASOPHILS PERCENT MAN 1 % (0-2); EOSINOPHILS PERCENT MAN 0 % (0-6); LYMPHOCYTES ABSOLUTE MAN 4.36 K/mm3 (0.84-5.20); LYMPHOCYTES PERCENT MAN 22 % (21-46); METAMYELOCYTE ABSOLUTE MAN 1.58 K/mm3 (0.00-0.00); METAMYELOCYTE PERCENT MAN 8 % (0-0); MONOCYTES ABSOLUTE MAN 3.57 K/mm3 (0.16-1.47); MONOCYTES PERCENT MAN 18 % (4-13); MYELOCYTE ABSOLUTE MAN 2.77 K/mm3 (0.00-0.00); MYELOCYTE PERCENT MAN 14 % (0-0); NEUTROPHILS ABSOLUTE MAN 6.94 K/mm3 (1.96-9.15); PROMYELOCYTE ABSOLUTE MAN 0.39 K/mm3 (0.00-0.00); PROMYELOCYTE PERCENT MAN 2 % (0-0); SEG NEUTROPHILS PERCENT MAN 28 % (41-73); TOTAL CELLS COUNTED 100
[2020-07-13 08:30] LABS: Vancomycin, Trough 22.3 ug/mL (5.0-10.0)
[2020-07-13] MEDS ORDERED: DOXY100 PO (11:18)
[2020-07-13] MEDS ORDERED: LIDO5TO TOP (11:21)
--- NOTE | 2020-07-13 12:04 | NUR ---
a+o, neutorpenic restrictions in place, asked to hold IV due to infiltration of iv, dr approved so removed IV, call light in reach, rm air up walking in rm, when dc orders received pt called family who agreed to pick him up, so pt asked if he could walk down stairs on his own, based on seeing pt in room moving nurse agreed. Walked pt to elevator with 2 masks
== END 2020-07-13 12:15 | disposition home or self-care (01) | DRG 863 ==
LOC: ER 14:25 → PCU 18:53 → MEDS 07-11 16:50
PROVIDERS: Emergency Medicine; Family Medicine; Student in an Organized Health Care Education/Training Program; ADMIT Hospitalist
PROC: 02PYX3Z Removal of Infusion Device from Great Vessel, External Approach (ICD-10-PCS; principal; 2020-07-10)
DX: T81.41XA Infection following a procedure, superficial incisional surgical site, initial encounter (principal); L03.113 Cellulitis of right upper limb; C83.30 Diffuse large B-cell lymphoma, unspecified site; D70.1 Agranulocytosis secondary to cancer chemotherapy; I10 Essential (primary) hypertension; M51.36 Other intervertebral disc degeneration, lumbar region; R50.81 Fever presenting with conditions classified elsewhere; D64.81 Anemia due to antineoplastic chemotherapy; G89.29 Other chronic pain; D69.59 Other secondary thrombocytopenia; K12.1 Other forms of stomatitis; K14.0 Glossitis; T45.1X5A Adverse effect of antineoplastic and immunosuppressive drugs, initial encounter; Z87.891 Personal history of nicotine dependence; Z86.718 Personal history of other venous thrombosis and embolism; Z90.49 Acquired absence of other specified parts of digestive tract; Z90.89 Acquired absence of other organs; Z98.890 Other specified postprocedural states; Z88.1 Allergy status to other antibiotic agents; Z88.2 Allergy status to sulfonamides; Z88.8 Allergy status to other drugs, medicaments and biological substances; Z79.01 Long term (current) use of anticoagulants; Z79.899 Other long term (current) drug therapy; Y83.8 Other surgical procedures as the cause of abnormal reaction of the patient, or of later complication, without mention of misadventure at the time of the procedure
CPT/HCPCS: 36415; 71045; 80048; 80053; 80202; 83605; 85007; 85025; 85027; 87040; 87070; 93005; 93010; 96365; 99285-25; A9270; J0692; J3370; J7030; J7050

== ENCOUNTER 2020-07-24 01:58 | Day surgery (SDC) | payer BC, OTHER ==
[~2020-07-24 01:58] MED LIST changes: +LIDO5TO TOP
[2020-07-24] MEDS ORDERED: Bentyl20 MG PO (15:18)
[2020-07-24] MEDS ORDERED: ELIQUIS5 M3 PO (15:19)
== END 2020-07-24 22:35 | disposition home or self-care (01) ==
LOC: ATC 01:58
DX: C85.14 Unspecified B-cell lymphoma, lymph nodes of axilla and upper limb (principal); Z79.899 Other long term (current) drug therapy
CPT/HCPCS: 36569; C1751

== ENCOUNTER 2020-08-04 04:05 | Day surgery (SDC) | payer BC, OTHER ==
[~2020-08-04 04:05] MED LIST changes: +Bentyl20 MG PO; +ELIQUIS5 M3 PO
[2020-08-04 10:44] LABS: Hematocrit 32.8 % (37.0-53.0); Hemoglobin 10.9 g/dL (13.5-17.5); Mean Corpuscular HGB 33.5 pg (26.0-34.0); Mean Corpuscular HGB Conc 33.2 g/dL (31.5-36.5); Mean Corpuscular Volume 101 fL (80-100); Mean Platelet Volume 10.8 fL (9.1-12.4); Platelet Count 58 K/mm3 (150-400); RDW Coefficient Variation 15.8 % (11.7-14.2); RDW Standard Deviation 58.7 fL (35.1-46.3); Red Blood Cell Count 3.25 M/mm3 (4.30-5.90); White Blood Cell Count 5.94 K/mm3 (4.00-11.30)
[2020-08-04 10:57] LABS: Lactate Dehydrogenase (Ld),Bld 192 U/L (100-240); Uric Acid, Blood 3.3 mg/dL (3.5-7.2)
[2020-08-04 11:03] LABS: Alanine Aminotransfer (ALT/SGP 24 U/L (12-78); Albumin, Blood 3.3 g/dL (3.4-5.0); Albumin/Globulin Ratio 1.1 (0.8-1.8); Alk Phos 92 U/L (50-136); Anion Gap 4 mmol/L (6-16); Aspartate Aminotrans (AST/SGOT 13 U/L (12-37); Bilirubin, Total 0.7 mg/dL (0.1-1.0); Blood Urea Nitrogen 12 mg/dL (8-24); Bun/Creatinine Ratio 18.4 (12.0-20.0); CO2, Blood 28 mmol/L (21-32); Calcium, Blood 8.1 mg/dL (8.5-10.1); Chloride, Blood 108 mmol/L (98-108); Creatinine, Blood 0.65 mg/dL (0.60-1.20); Globulin, Blood 3.1 g/dL (2.2-4.0); Glomerular Filtration Rate >60 (60-); Glucose, Blood 119 mg/dL (70-99); Phosphorus, Blood 3.8 mg/dL (2.5-4.9); Potassium, Blood 3.8 mmol/L (3.5-5.5); Sodium, Blood 140 mmol/L (136-145); Total Protein, Blood 6.4 g/dL (6.4-8.2)
[2020-08-04 12:08] LABS: BAND PERCENT MAN 2 % (0-8); BASOPHILS ABSOLUTE MAN 0.11 K/mm3 (0.00-0.23); BASOPHILS PERCENT MAN 2 % (0-2); EOSINOPHILS ABSOLUTE MAN 0.17 K/mm3 (0.00-0.68); EOSINOPHILS PERCENT MAN 3 % (0-6); LYMPHOCYTES ABSOLUTE MAN 1.24 K/mm3 (0.84-5.20); LYMPHOCYTES PERCENT MAN 21 % (21-46); MONOCYTES PERCENT MAN 0 % (4-13); NEUTROPHILS ABSOLUTE MAN 4.39 K/mm3 (1.96-9.15); SEG NEUTROPHILS PERCENT MAN 72 % (41-73); TOTAL CELLS COUNTED 100
== END 2020-08-04 09:28 | disposition home or self-care (01) ==
LOC: ATC 04:05
PROVIDERS: Internal Medicine Hematology & Oncology
DX: C85.14 Unspecified B-cell lymphoma, lymph nodes of axilla and upper limb (principal); Z92.21 Personal history of antineoplastic chemotherapy
CPT/HCPCS: 36592; 80053; 83615; 84100; 84550; 85025

== ENCOUNTER 2020-08-08 00:15 | Day surgery (SDC) | payer BC, OTHER ==
[2020-08-08 09:21] LABS: BASOPHILS PERCENT AUTO 3 % (0-2); Hematocrit 30.6 % (37.0-53.0); Hemoglobin 10.4 g/dL (13.5-17.5); Mean Corpuscular HGB 33.3 pg (26.0-34.0); Mean Corpuscular Volume 98 fL (80-100); RDW Coefficient Variation 14.9 % (11.7-14.2); RDW Standard Deviation 53.4 fL (35.1-46.3); Red Blood Cell Count 3.12 M/mm3 (4.30-5.90); White Blood Cell Count 2.91 K/mm3 (4.00-11.30)
--- NOTE | 2020-08-08 09:36 | NUR ---
PT HAD LARGE BLOOD CLOT OVER INSERTION SITE OF PICC. HE STATES HE PULLED IT THE OTHER NIGHT ON BLANKETS. PICC LINE DRESSING CHANGE DONE. CLEANED WITH CHLORAPREP X2. STAT LOCK CLEAN AND INTACT. NEW CHG DRESSING APPLIED AND NETTING. END CAPS CHANGED AFTER BLOOD DRAW.
[2020-08-08 09:44] LABS: Alanine Aminotransfer (ALT/SGP 27 U/L (12-78); Albumin, Blood 3.2 g/dL (3.4-5.0); Albumin/Globulin Ratio 0.9 (0.8-1.8); Alk Phos 84 U/L (50-136); Anion Gap 6 mmol/L (6-16); Aspartate Aminotrans (AST/SGOT 8 U/L (12-37); Bilirubin, Total 0.2 mg/dL (0.1-1.0); Blood Urea Nitrogen 14 mg/dL (8-24); Bun/Creatinine Ratio 16.7 (12.0-20.0); CO2, Blood 27 mmol/L (21-32); Calcium, Blood 8.4 mg/dL (8.5-10.1); Chloride, Blood 110 mmol/L (98-108); Creatinine, Blood 0.84 mg/dL (0.60-1.20); Globulin, Blood 3.5 g/dL (2.2-4.0); Glomerular Filtration Rate >60 (60-); Glucose, Blood 103 mg/dL (70-99); Lactate Dehydrogenase (Ld),Bld 155 U/L (100-240); Phosphorus, Blood 3.8 mg/dL (2.5-4.9); Potassium, Blood 3.7 mmol/L (3.5-5.5); Sodium, Blood 143 mmol/L (136-145); Total Protein, Blood 6.7 g/dL (6.4-8.2); Uric Acid, Blood 5.7 mg/dL (3.5-7.2)
[2020-08-08 09:45] LABS: EOSINOPHILS ABSOLUTE AUTO 0.07 K/mm3 (0.00-0.68); EOSINOPHILS PERCENT AUTO 2 % (0-6); IMMATURE GRAN ABSOLUTE AUTO 0.05 K/mm3 (0.00-0.10); IMMATURE GRAN PERCENT AUTO 2 % (0-1); LYMPHOCYTES ABSOLUTE AUTO 1.47 K/mm3 (0.84-5.20); LYMPHOCYTES PERCENT AUTO 51 % (21-46); MONOCYTES ABSOLUTE AUTO 0.63 K/mm3 (0.16-1.47); MONOCYTES PERCENT AUTO 22 % (4-13); NEUTROPHILS ABSOLUTE AUTO 0.59 K/mm3 (1.96-9.15); NEUTROPHILS PERCENT AUTO 20 % (41-73); Platelet Count 25 K/mm3 (150-400)
== END 2020-08-08 09:05 | disposition home or self-care (01) ==
LOC: ATC 00:15
PROVIDERS: Internal Medicine Hematology & Oncology
DX: C85.14 Unspecified B-cell lymphoma, lymph nodes of axilla and upper limb (principal)
CPT/HCPCS: 36592; 80053; 83615; 84100; 84550; 85025

== ENCOUNTER 2020-08-11 04:15 | Day surgery (SDC) | payer BC, OTHER ==
[2020-08-11 09:32] LABS: Hematocrit 30.5 % (37.0-53.0); Hemoglobin 10.2 g/dL (13.5-17.5); Mean Corpuscular HGB 33.6 pg (26.0-34.0); Mean Corpuscular HGB Conc 33.4 g/dL (31.5-36.5); Mean Corpuscular Volume 100 fL (80-100); RDW Standard Deviation 58.4 fL (35.1-46.3); Red Blood Cell Count 3.04 M/mm3 (4.30-5.90); White Blood Cell Count 15.33 K/mm3 (4.00-11.30)
[2020-08-11 09:34] LABS: NRBC ABSOLUTE 0.84 K/mm3 (0.00-0.02); NRBC Auto 5.5 /100 WBC (0.0-0.2)
[2020-08-11 09:39] LABS: Mean Platelet Volume 12.1 fL (9.1-12.4); Platelet Count 110 K/mm3 (150-400)
[2020-08-11 09:52] LABS: Lactate Dehydrogenase (Ld),Bld 372 U/L (100-240); Uric Acid, Blood 5.5 mg/dL (3.5-7.2)
[2020-08-11 09:53] LABS: Alanine Aminotransfer (ALT/SGP 37 U/L (12-78); Albumin, Blood 3.3 g/dL (3.4-5.0); Alk Phos 94 U/L (50-136); Anion Gap 6 mmol/L (6-16); Aspartate Aminotrans (AST/SGOT 27 U/L (12-37); Bilirubin, Total 0.1 mg/dL (0.1-1.0); Blood Urea Nitrogen 12 mg/dL (8-24); Bun/Creatinine Ratio 15.5 (12.0-20.0); CO2, Blood 25 mmol/L (21-32); Calcium, Blood 7.9 mg/dL (8.5-10.1); Chloride, Blood 111 mmol/L (98-108); Creatinine, Blood 0.77 mg/dL (0.60-1.20); Globulin, Blood 3.3 g/dL (2.2-4.0); Glomerular Filtration Rate >60 (60-); Glucose, Blood 111 mg/dL (70-99); Phosphorus, Blood 4.2 mg/dL (2.5-4.9); Potassium, Blood 3.6 mmol/L (3.5-5.5); Sodium, Blood 142 mmol/L (136-145); Total Protein, Blood 6.6 g/dL (6.4-8.2)
[2020-08-11 10:07] LABS: BAND PERCENT MAN 10 % (0-8); BASOPHILS PERCENT MAN 0 % (0-2); EOSINOPHILS PERCENT MAN 0 % (0-6); LYMPHOCYTES ABSOLUTE MAN 3.06 K/mm3 (0.84-5.20); LYMPHOCYTES PERCENT MAN 20 % (21-46); METAMYELOCYTE ABSOLUTE MAN 1.22 K/mm3 (0.00-0.00); METAMYELOCYTE PERCENT MAN 8 % (0-0); MONOCYTES ABSOLUTE MAN 1.22 K/mm3 (0.16-1.47); MONOCYTES PERCENT MAN 8 % (4-13); MYELOCYTE ABSOLUTE MAN 0.91 K/mm3 (0.00-0.00); MYELOCYTE PERCENT MAN 6 % (0-0); NEUTROPHILS ABSOLUTE MAN 8.58 K/mm3 (1.96-9.15); PROMYELOCYTE PERCENT MAN 2 % (0-0); SEG NEUTROPHILS PERCENT MAN 46 % (41-73); TOTAL CELLS COUNTED 100
--- NOTE | 2020-08-12 11:31 | NUR ---
NOTIFIED DR KHAN ON 08/12/20 AT 1130 VIA CHUY, THAT PICC HAD COME OUT 3 CM. PER CHUY, THIS IS FINE.
== END 2020-08-11 08:55 | disposition home or self-care (01) ==
LOC: ATC 04:15
PROVIDERS: Internal Medicine Hematology & Oncology
DX: C85.14 Unspecified B-cell lymphoma, lymph nodes of axilla and upper limb (principal); C83.31 Diffuse large B-cell lymphoma, lymph nodes of head, face, and neck
CPT/HCPCS: 36592; 80053; 83615; 84100; 84550; 85025

== ENCOUNTER 2020-10-26 18:52 | Emergency (ER) | payer BC, OTHER ==
[~2020-10-26] VITALS: Ht 180.3 cm; Wt 116.1 kg
[2020-10-26 19:39] LABS: BASOPHILS ABSOLUTE AUTO 0.03 K/mm3 (0.00-0.23); BASOPHILS PERCENT AUTO 1 % (0-2); EOSINOPHILS ABSOLUTE AUTO 0.04 K/mm3 (0.00-0.68); EOSINOPHILS PERCENT AUTO 1 % (0-6); Hematocrit 44.5 % (37.0-53.0); Hemoglobin 15.5 g/dL (13.5-17.5); IMMATURE GRAN ABSOLUTE AUTO 0.01 K/mm3 (0.00-0.10); IMMATURE GRAN PERCENT AUTO 0 % (0-1); LYMPHOCYTES ABSOLUTE AUTO 3.48 K/mm3 (0.84-5.20); LYMPHOCYTES PERCENT AUTO 64 % (21-46); MONOCYTES ABSOLUTE AUTO 0.55 K/mm3 (0.16-1.47); MONOCYTES PERCENT AUTO 10 % (4-13); Mean Corpuscular HGB 30.3 pg (26.0-34.0); Mean Corpuscular HGB Conc 34.8 g/dL (31.5-36.5); Mean Corpuscular Volume 87 fL (80-100); NEUTROPHILS ABSOLUTE AUTO 1.35 K/mm3 (1.96-9.15); NEUTROPHILS PERCENT AUTO 25 % (41-73); Platelet Count 256 K/mm3 (150-400); RDW Coefficient Variation 13.7 % (11.7-14.2); RDW Standard Deviation 43.8 fL (35.1-46.3); Red Blood Cell Count 5.12 M/mm3 (4.30-5.90); White Blood Cell Count 5.46 K/mm3 (4.00-11.30)
[2020-10-26 20:04] LABS: Alanine Aminotransfer (ALT/SGP 48 U/L (12-78); Albumin, Blood 3.9 g/dL (3.4-5.0); Albumin/Globulin Ratio 1.2 (0.8-1.8); Alk Phos 80 U/L (50-136); Anion Gap 10 mmol/L (6-16); Aspartate Aminotrans (AST/SGOT 32 U/L (12-37); Bilirubin, Total 0.3 mg/dL (0.1-1.0); Blood Urea Nitrogen 13 mg/dL (8-24); Bun/Creatinine Ratio 16.7 (12.0-20.0); CO2, Blood 23 mmol/L (21-32); Calcium, Blood 8.1 mg/dL (8.5-10.1); Chloride, Blood 112 mmol/L (98-108); Creatinine, Blood 0.78 mg/dL (0.60-1.20); Globulin, Blood 3.3 g/dL (2.2-4.0); Glomerular Filtration Rate >60 (60-); Glucose, Blood 163 mg/dL (70-99); Potassium, Blood 3.3 mmol/L (3.5-5.5); Sodium, Blood 145 mmol/L (136-145); Total Protein, Blood 7.2 g/dL (6.4-8.2); Troponin I <0.015 ng/mL (0.000-0.040)
[2020-10-26] MEDS ORDERED: IBUP800 PO (21:51)
[2020-10-26] MEDS ORDERED: BENZ100A PO (21:51)
== END 2020-10-26 22:20 | disposition home or self-care (01) ==
LOC: ER 18:52
PROVIDERS: Physician Assistant
DX: U07.1 COVID-19 (principal); I10 Essential (primary) hypertension; Z88.2 Allergy status to sulfonamides; Z88.8 Allergy status to other drugs, medicaments and biological substances; Z79.899 Other long term (current) drug therapy; Z79.01 Long term (current) use of anticoagulants; Z86.718 Personal history of other venous thrombosis and embolism; Z87.891 Personal history of nicotine dependence
CPT/HCPCS: 36415; 71045; 71260; 80053; 84484; 85025; 93005; 93010; 96374-59; 99284-25; A9270; J1885; Q9967

== ENCOUNTER → 2021-05-26 | Outpatient (CLI) | payer BC, OTHER ==
[~2021-05-26] MED LIST changes: +BENZ100A PO
[2021-05-26 10:48] LABS: BASOPHILS PERCENT AUTO 1 % (0-2); EOSINOPHILS ABSOLUTE AUTO 0.11 K/mm3 (0.00-0.68); EOSINOPHILS PERCENT AUTO 1 % (0-6); Hematocrit 48.7 % (37.0-53.0); IMMATURE GRAN ABSOLUTE AUTO 0.05 K/mm3 (0.00-0.10); IMMATURE GRAN PERCENT AUTO 0 % (0-1); LYMPHOCYTES PERCENT AUTO 34 % (21-46); MONOCYTES ABSOLUTE AUTO 0.95 K/mm3 (0.16-1.47); MONOCYTES PERCENT AUTO 7 % (4-13); Mean Corpuscular HGB 31.4 pg (26.0-34.0); Mean Corpuscular HGB Conc 34.9 g/dL (31.5-36.5); Mean Corpuscular Volume 90 fL (80-100); Mean Platelet Volume 9.2 fL (9.1-12.4); NEUTROPHILS ABSOLUTE AUTO 8.26 K/mm3 (1.96-9.15); NEUTROPHILS PERCENT AUTO 58 % (41-73); Platelet Count 342 K/mm3 (150-400); RDW Standard Deviation 49.3 fL (35.1-46.3); Red Blood Cell Count 5.41 M/mm3 (4.30-5.90); White Blood Cell Count 14.37 K/mm3 (4.00-11.30)
[2021-05-26 11:05] LABS: Source, Urine Clean Catch
[2021-05-26 11:16] LABS: Alanine Aminotransfer (ALT/SGP 36 U/L (12-78); Albumin, Blood 4.2 g/dL (3.4-5.0); Albumin/Globulin Ratio 1.2 (0.8-1.8); Alk Phos 93 U/L (40-126); Anion Gap 8 mmol/L (6-16); Aspartate Aminotrans (AST/SGOT 18 U/L (12-37); Bilirubin, Total 0.8 mg/dL (0.1-1.0); Blood Urea Nitrogen 12 mg/dL (8-24); Bun/Creatinine Ratio 11.2 (12.0-20.0); CO2, Blood 28 mmol/L (21-32); Calcium, Blood 8.8 mg/dL (8.5-10.1); Chloride, Blood 105 mmol/L (98-108); Creatinine, Blood 1.07 mg/dL (0.60-1.20); Globulin, Blood 3.6 g/dL (2.2-4.0); Glomerular Filtration Rate >60 (60-); Glucose, Blood 97 mg/dL (70-99); Potassium, Blood 4.1 mmol/L (3.5-5.5); Sodium, Blood 141 mmol/L (136-145); Thyroid Stimulating Hormone 0.723 uIU/mL (0.360-4.800); Total Protein, Blood 7.8 g/dL (6.4-8.2)
[2021-05-26 11:23] LABS: Bacteria Few /hpf; Red Blood Cells, Urine Rare /hpf (0-2); Squamous Epithelial Cells Few /hpf (Few)
[2021-05-26 11:24] LABS: Mucus Heavy (0-Heavy)
== END ==
LOC: LAB SHORT 10:43
PROVIDERS: General Practice
DX: R53.81 Other malaise (principal); R82.90 Unspecified abnormal findings in urine
CPT/HCPCS: 80053; 81015; 84439; 84443; 85025; 87086

== ENCOUNTER 2021-05-28 19:27 | Emergency (ER) | payer BC, OTHER ==
[~2021-05-28] VITALS: Ht 180.3 cm; Wt 117.9 kg
[2021-05-28 20:15] LABS: BASOPHILS ABSOLUTE AUTO 0.08 K/mm3 (0.00-0.23); BASOPHILS PERCENT AUTO 1 % (0-2); EOSINOPHILS ABSOLUTE AUTO 0.27 K/mm3 (0.00-0.68); EOSINOPHILS PERCENT AUTO 3 % (0-6); Hematocrit 44.5 % (37.0-53.0); Hemoglobin 15.5 g/dL (13.5-17.5); IMMATURE GRAN ABSOLUTE AUTO 0.02 K/mm3 (0.00-0.10); IMMATURE GRAN PERCENT AUTO 0 % (0-1); LYMPHOCYTES ABSOLUTE AUTO 4.17 K/mm3 (0.84-5.20); LYMPHOCYTES PERCENT AUTO 44 % (21-46); MONOCYTES ABSOLUTE AUTO 0.87 K/mm3 (0.16-1.47); MONOCYTES PERCENT AUTO 9 % (4-13); Mean Corpuscular HGB 30.9 pg (26.0-34.0); Mean Corpuscular HGB Conc 34.8 g/dL (31.5-36.5); Mean Corpuscular Volume 89 fL (80-100); Mean Platelet Volume 9.5 fL (9.1-12.4); NEUTROPHILS ABSOLUTE AUTO 4.15 K/mm3 (1.96-9.15); NEUTROPHILS PERCENT AUTO 44 % (41-73); Platelet Count 361 K/mm3 (150-400); RDW Coefficient Variation 14.6 % (11.7-14.2); RDW Standard Deviation 46.9 fL (35.1-46.3); Red Blood Cell Count 5.01 M/mm3 (4.30-5.90); White Blood Cell Count 9.56 K/mm3 (4.00-11.30)
[2021-05-28 20:28] LABS: Alanine Aminotransfer (ALT/SGP 29 U/L (12-78); Albumin, Blood 3.7 g/dL (3.4-5.0); Alk Phos 89 U/L (50-136); Anion Gap 5 mmol/L (6-16); Aspartate Aminotrans (AST/SGOT 37 U/L (12-37); Bilirubin, Total 0.4 mg/dL (0.1-1.0); Blood Urea Nitrogen 12 mg/dL (8-24); Bun/Creatinine Ratio 13.8 (12.0-20.0); CO2, Blood 28 mmol/L (21-32); Calcium, Blood 8.3 mg/dL (8.5-10.1); Chloride, Blood 110 mmol/L (98-108); Creatinine, Blood 0.87 mg/dL (0.60-1.20); Globulin, Blood 3.6 g/dL (2.2-4.0); Glomerular Filtration Rate >60 (60-); Glucose, Blood 96 mg/dL (70-99); Potassium, Blood 4.7 mmol/L (3.5-5.5); Sodium, Blood 143 mmol/L (136-145); Total Protein, Blood 7.3 g/dL (6.4-8.2)
== END 2021-05-28 23:01 | disposition home or self-care (01) ==
LOC: ER 19:27
PROVIDERS: Physician Assistant
DX: M54.50 Low back pain, unspecified (principal); R10.9 Unspecified abdominal pain; R30.0 Dysuria; I10 Essential (primary) hypertension; Z86.718 Personal history of other venous thrombosis and embolism; Z87.891 Personal history of nicotine dependence; Z88.2 Allergy status to sulfonamides; Z88.8 Allergy status to other drugs, medicaments and biological substances; Z79.899 Other long term (current) drug therapy
CPT/HCPCS: 36415; 74176; 80053; 85025; 99284-25

== ENCOUNTER 2022-01-13 20:11 | Emergency (ER) | payer BC, OTHER ==
[~2022-01-13] VITALS: Ht 180.3 cm; Wt 118.4 kg
[~2022-01-13 20:11] MED LIST changes: +Pepcid40 MG PO
[2022-01-13 21:32] LABS: BASOPHILS ABSOLUTE AUTO 0.08 K/mm3 (0.00-0.23); BASOPHILS PERCENT AUTO 1 % (0-2); EOSINOPHILS ABSOLUTE AUTO 0.24 K/mm3 (0.00-0.68); EOSINOPHILS PERCENT AUTO 2 % (0-6); Hematocrit 47.3 % (37.0-53.0); Hemoglobin 16.7 g/dL (13.5-17.5); Mean Corpuscular HGB 31.1 pg (26.0-34.0); Mean Corpuscular HGB Conc 35.3 g/dL (31.5-36.5); Mean Corpuscular Volume 88 fL (80-100); Mean Platelet Volume 8.8 fL (9.1-12.4); Platelet Count 332 K/mm3 (150-400); RDW Coefficient Variation 14.5 % (11.7-14.2); RDW Standard Deviation 46.6 fL (35.1-46.3); Red Blood Cell Count 5.37 M/mm3 (4.30-5.90); White Blood Cell Count 10.68 K/mm3 (4.00-11.30)
[2022-01-13 21:33] LABS: IMMATURE GRAN ABSOLUTE AUTO 0.04 K/mm3 (0.00-0.10); IMMATURE GRAN PERCENT AUTO 0 % (0-1); LYMPHOCYTES ABSOLUTE AUTO 5.43 K/mm3 (0.84-5.20); LYMPHOCYTES PERCENT AUTO 51 % (21-46); MONOCYTES ABSOLUTE AUTO 0.92 K/mm3 (0.16-1.47); MONOCYTES PERCENT AUTO 9 % (4-13); NEUTROPHILS ABSOLUTE AUTO 3.97 K/mm3 (1.96-9.15); NEUTROPHILS PERCENT AUTO 37 % (41-73)
[2022-01-13 21:51] LABS: Albumin, Blood 3.9 g/dL (3.4-5.0); Albumin/Globulin Ratio 1.1 (0.8-1.8); Bilirubin, Total 0.5 mg/dL (0.1-1.0); Bun/Creatinine Ratio 24.9 (12.0-20.0); Calcium, Blood 9.2 mg/dL (8.5-10.1); Creatinine, Blood 0.92 mg/dL (0.60-1.20); Globulin, Blood 3.7 g/dL (2.2-4.0); Potassium, Blood 4.4 mmol/L (3.5-5.5); Total Protein, Blood 7.6 g/dL (6.4-8.2)
[2022-01-13] MEDS ORDERED: ONDA4ODT SL (23:16)
[2022-01-13] MEDS ORDERED: Percocet 5-3251 EACH PO (23:16)
== END 2022-01-13 23:42 | disposition home or self-care (01) ==
LOC: ER 20:11
PROVIDERS: Student in an Organized Health Care Education/Training Program
DX: M25.561 Pain in right knee (principal); M17.11 Unilateral primary osteoarthritis, right knee; I10 Essential (primary) hypertension; Z96.652 Presence of left artificial knee joint; Z87.891 Personal history of nicotine dependence
CPT/HCPCS: 36415; 73706; 80053; 85025; A9270; J1170; J2405; Q9967

== ENCOUNTER 2022-02-05 09:13 | Day surgery (SDC) | payer BC, OTHER ==
[~2022-02-05] VITALS: Ht 180.3 cm; Wt 119.0 kg
[~2022-02-05 09:13] MED LIST changes: +ONDA4ODT SL; +Percocet 5-3251 EACH PO
--- NOTE | 2022-02-05 10:36 | NUR ---
02/05/22 1036 Miriam Wu 30 MLS OF EPI 1MG/ML USED ON FIELD TO SOAK PLEDGETTS.
--- NOTE | 2022-02-05 11:59 | NUR ---
02/05/22 1159 RANDELL CHAN PT TO BATHROOM PRIOR TO DISCHARGE
== END 2022-02-05 11:59 | disposition home or self-care (01) ==
LOC: ORSCSDS 09:13
PROVIDERS: Otolaryngology
PROC: 0CBM8ZX Excision of Pharynx, Via Natural or Artificial Opening Endoscopic, Diagnostic (ICD-10-PCS; principal; 2022-02-05 10:45)
DX: C83.71 Burkitt lymphoma, lymph nodes of head, face, and neck (principal); J35.1 Hypertrophy of tonsils; I10 Essential (primary) hypertension; J45.909 Unspecified asthma, uncomplicated
CPT/HCPCS: 88305; J0171; J1100; J2250; J2370; J2405; J2704; J3010

== ENCOUNTER 2023-02-13 08:02 | Emergency (ER) | payer BC, OTHER ==
[~2023-02-13] VITALS: Ht 180.3 cm; Wt 117.9 kg
[2023-02-13 09:09] LABS: Hematocrit 48.9 % (37.0-53.0); Hemoglobin 16.9 g/dL (13.5-17.5); Mean Corpuscular HGB 30.9 pg (26.0-34.0); Mean Corpuscular HGB Conc 34.6 g/dL (31.5-36.5); Mean Corpuscular Volume 89 fL (80-100); Mean Platelet Volume 9.2 fL (9.1-12.4); Platelet Count 295 K/mm3 (150-400); RDW Coefficient Variation 14.4 % (11.7-14.2); RDW Standard Deviation 47.3 fL (35.1-46.3); Red Blood Cell Count 5.47 M/mm3 (4.30-5.90); White Blood Cell Count 9.11 K/mm3 (4.00-11.30)
[2023-02-13 09:40] LABS: Albumin, Blood 3.5 g/dL (3.4-5.0); Bilirubin, Total 0.5 mg/dL (0.1-1.0); Bun/Creatinine Ratio 13.7 (12.0-20.0); Calcium, Blood 8.4 mg/dL (8.5-10.1); Creatinine, Blood 0.8 mg/dL (0.60-1.20); Globulin, Blood 3.6 g/dL (2.2-4.0); Total Protein, Blood 7.1 g/dL (6.4-8.2)
[2023-02-13 10:00] LABS: Source, Urine Clean Catch
[2023-02-13 10:02] LABS: BASOPHILS PERCENT MAN 0 % (0-2); EOSINOPHILS ABSOLUTE MAN 0.54 K/mm3 (0.00-0.68); EOSINOPHILS PERCENT MAN 6 % (0-6); LYMPHOCYTES % ATYPICAL MANUAL 5 % (0-0); LYMPHOCYTES ABSOLUTE MAN 5.55 K/mm3 (0.84-5.20); LYMPHOCYTES PERCENT MAN 56 % (21-46); MONOCYTES ABSOLUTE MAN 1.09 K/mm3 (0.16-1.47); MONOCYTES PERCENT MAN 12 % (4-13); NEUTROPHILS ABSOLUTE MAN 1.82 K/mm3 (1.96-9.15); PLASMA CELL ABSOLUTE MAN 0.09 K/mm3 (0.00-0.00); PLASMA CELLS PERCENT MAN 1 % (0-0); SEG NEUTROPHILS PERCENT MAN 20 % (41-73); TOTAL CELLS COUNTED 100
[2023-02-13 10:09] LABS: Appearance, Urine Clear (Clear); Bilirubin, Urine Neg (Neg); Blood, Urine Neg (Neg); Color, Urine Yellow (P-Yellow); Glucose Qualitative, Urine Neg (Neg); Ketones, Urine Neg (Neg); Leukocyte Esterase, Urine Neg (Neg); Nitrite, Urine Neg (Neg); Protein, Urine Neg (Neg); Urobilinogen, Urine NORM (Normal)
[2023-02-13] MEDS ORDERED: Flagyl500 MG PO (10:36)
[2023-02-13] MEDS ORDERED: AMOCLA875 PO (10:36)
[2023-02-13 11:30] VITALS: BP 136/78
== END 2023-02-13 11:42 | disposition home or self-care (01) ==
LOC: ER 08:02
PROVIDERS: Physician Assistant
DX: K57.32 Diverticulitis of large intestine without perforation or abscess without bleeding (principal); R21 Rash and other nonspecific skin eruption; I10 Essential (primary) hypertension; Z87.891 Personal history of nicotine dependence; Z88.2 Allergy status to sulfonamides; Z88.1 Allergy status to other antibiotic agents; Z88.8 Allergy status to other drugs, medicaments and biological substances
CPT/HCPCS: 74177; 80053; 81003; 85025; 96374; 96375; 99284-25; J1170; J1885; J2405; J7030; Q9967

== ENCOUNTER 2023-02-21 03:14 | Emergency (ER) | payer BC, OTHER ==
[~2023-02-21] VITALS: Ht 167.6 cm; Wt 99.8 kg
[~2023-02-21 03:14] MED LIST changes: +Flagyl500 MG PO
[2023-02-21 04:39] LABS: Hematocrit 49.5 % (37.0-53.0); Hemoglobin 16.9 g/dL (13.5-17.5); Mean Corpuscular HGB Conc 34.1 g/dL (31.5-36.5); Mean Corpuscular Volume 91 fL (80-100); Platelet Count 329 K/mm3 (150-400); RDW Coefficient Variation 14.7 % (11.7-14.2); RDW Standard Deviation 49.2 fL (35.1-46.3); Red Blood Cell Count 5.45 M/mm3 (4.30-5.90); White Blood Cell Count 10.59 K/mm3 (4.00-11.30)
[2023-02-21 05:03] LABS: Albumin, Blood 3.7 g/dL (3.4-5.0); Albumin/Globulin Ratio 1.1 (0.8-1.8); Bilirubin, Total 0.5 mg/dL (0.1-1.0); Bun/Creatinine Ratio 20.4 (12.0-20.0); Calcium, Blood 8.5 mg/dL (8.5-10.1); Creatinine, Blood 0.98 mg/dL (0.60-1.20); Globulin, Blood 3.5 g/dL (2.2-4.0); Potassium, Blood 4.2 mmol/L (3.5-5.5); Total Protein, Blood 7.2 g/dL (6.4-8.2)
[2023-02-21 05:35] LABS: BASOPHILS PERCENT MAN 0 % (0-2); EOSINOPHILS ABSOLUTE MAN 0.21 K/mm3 (0.00-0.68); EOSINOPHILS PERCENT MAN 2 % (0-6); LYMPHOCYTES % ATYPICAL MANUAL 1 % (0-0); LYMPHOCYTES ABSOLUTE MAN 6.03 K/mm3 (0.84-5.20); LYMPHOCYTES PERCENT MAN 56 % (21-46); MONOCYTES ABSOLUTE MAN 0.84 K/mm3 (0.16-1.47); MONOCYTES PERCENT MAN 8 % (4-13); NEUTROPHILS ABSOLUTE MAN 3.49 K/mm3 (1.96-9.15); SEG NEUTROPHILS PERCENT MAN 33 % (41-73); TOTAL CELLS COUNTED 100
[2023-02-21] MEDS ORDERED: CIPR500 PO (07:47)
[2023-02-21] MEDS ORDERED: TRAM50 PO (07:47)
[2023-02-21 08:41] VITALS: BP 138/105
== END 2023-02-21 08:41 | disposition home or self-care (01) ==
LOC: ER 03:14
PROVIDERS: Emergency Medicine
DX: K57.32 Diverticulitis of large intestine without perforation or abscess without bleeding (principal); E86.0 Dehydration; I10 Essential (primary) hypertension; Z88.1 Allergy status to other antibiotic agents; Z88.2 Allergy status to sulfonamides; Z88.8 Allergy status to other drugs, medicaments and biological substances
CPT/HCPCS: 74177; 80053; 83605; 83690; 85025; 96361; 96365-59; 96375; 99284-25; A9270; J1885; J2270; J7030; Q9967

== ENCOUNTER 2023-03-13 05:38 | Emergency (ER) | payer BC, OTHER ==
[~2023-03-13] VITALS: Ht 180.3 cm; Wt 116.6 kg
[2023-03-13 06:01] VITALS: BP 155/90
[2023-03-13 08:43] LABS: Influenza A, PCR NEGATIVE (NEGATIVE); Influenza B, PCR NEGATIVE (NEGATIVE); Resp Syncytial Virus, PCR NEGATIVE (NEGATIVE); SARS-Cov-2 (COVID-19) PCR, MMC NEGATIVE (NEGATIVE)
[2023-03-13 09:10] LABS: BASOPHILS ABSOLUTE AUTO 0.08 K/mm3 (0.00-0.23); BASOPHILS PERCENT AUTO 1 % (0-2); EOSINOPHILS ABSOLUTE AUTO 0.08 K/mm3 (0.00-0.68); EOSINOPHILS PERCENT AUTO 1 % (0-6); Hematocrit 48.7 % (37.0-53.0); Hemoglobin 16.9 g/dL (13.5-17.5); IMMATURE GRAN ABSOLUTE AUTO 0.02 K/mm3 (0.00-0.10); IMMATURE GRAN PERCENT AUTO 0 % (0-1); LYMPHOCYTES ABSOLUTE AUTO 3.96 K/mm3 (0.84-5.20); LYMPHOCYTES PERCENT AUTO 54 % (21-46); MONOCYTES ABSOLUTE AUTO 0.74 K/mm3 (0.16-1.47); MONOCYTES PERCENT AUTO 10 % (4-13); Mean Corpuscular HGB Conc 34.7 g/dL (31.5-36.5); Mean Corpuscular Volume 89 fL (80-100); Mean Platelet Volume 9.2 fL (9.1-12.4); NEUTROPHILS ABSOLUTE AUTO 2.46 K/mm3 (1.96-9.15); NEUTROPHILS PERCENT AUTO 33 % (41-73); Platelet Count 290 K/mm3 (150-400); RDW Coefficient Variation 14.6 % (11.7-14.2); RDW Standard Deviation 46.6 fL (35.1-46.3); Red Blood Cell Count 5.46 M/mm3 (4.30-5.90); White Blood Cell Count 7.34 K/mm3 (4.00-11.30)
[2023-03-13 09:32] LABS: Albumin, Blood 3.8 g/dL (3.4-5.0); Bilirubin, Total 0.7 mg/dL (0.1-1.0); Bun/Creatinine Ratio 15.7 (12.0-20.0); Calcium, Blood 8.6 mg/dL (8.5-10.1); Creatinine, Blood 0.83 mg/dL (0.60-1.20); Globulin, Blood 3.7 g/dL (2.2-4.0); Potassium, Blood 3.9 mmol/L (3.5-5.5); Total Protein, Blood 7.5 g/dL (6.4-8.2)
[2023-03-13] MEDS ORDERED: IBUP600 PO (09:48)
[2023-03-13] MEDS ORDERED: ONDA4ODT MM (09:48)
== END 2023-03-13 10:05 | disposition home or self-care (01) ==
LOC: ER 05:38
PROVIDERS: Emergency Medicine
DX: B34.9 Viral infection, unspecified (principal); I10 Essential (primary) hypertension; G89.29 Other chronic pain; Z11.52 Encounter for screening for COVID-19; Z88.2 Allergy status to sulfonamides; Z88.8 Allergy status to other drugs, medicaments and biological substances; Z88.1 Allergy status to other antibiotic agents; Z87.891 Personal history of nicotine dependence; Z85.72 Personal history of non-Hodgkin lymphomas
CPT/HCPCS: 0241U; 80053; 83690; 85025; 96361; 96374; 96375; 99284-25; J1885; J2405; J7030

== ENCOUNTER 2023-09-04 12:22 | Day surgery (SDC) | payer BC, OTHER ==
[~2023-09-04] VITALS: Ht 182.9 cm; Wt 118.9 kg
[~2023-09-04 12:22] MED LIST changes: +Lactated Ringer's 1,000 ML IV ONE; +ONDA4ODT MM
[2023-09-04] MEDS ORDERED: FentaNYL Citrate 50 MCG/ML 2 ML Injection ONE ×2 (12:49→16:10)
[2023-09-04] MEDS ORDERED: propofoL 20 ML IV ONE ×2 (12:49→15:25)
[2023-09-04] MEDS ORDERED: Aspir 8181 MG PO (13:06)
[2023-09-04] MEDS ORDERED: Lactated Ringer's 1,000 ML IV ONE (13:27)
[2023-09-04] MEDS ORDERED: EPINEPhrine HCl 1 MG / ML 30ML Vial ONE (15:08)
--- NOTE | 2023-09-04 15:25 | NUR ---
09/04/23 [facility]5 Micheline Herrera 1415: ANESTHESIA JULIET DOTY CRNA NOTIFIED OF PATIENT'S IRREGULAR HEART BEAT AND IMPLANTED LOOP RECORDER THAT IS NOT ACTIVE.
[2023-09-04] MEDS ORDERED: Labetalol HCL 5 MG/ML 4ML Injection (Single Dose) ONE (15:36)
--- NOTE | 2023-09-04 15:41 | NUR ---
09/04/23 1541 Jeanie Jacob USED ON STERILE FIELD TO SOAK PLEDGETS
--- NOTE | 2023-09-04 16:11 | NUR ---
09/04/23 1611 RANDELL CHAN PT WAKES, COUGHS UP A CLOT OF BLOOD. O2 VIA NON-REBREATHER WAS REMOVEED WHEN HE WOKE. O2 SAT DECREASED TO LOW 90'S. O2 PLACED BACK ON 5L PER NON-REBREATHER AT THIS TIME. PT CALM. PT CO OF PAIN 07/04. WOULD LIKE PAIN MED. DENIES NAUSEA
--- NOTE | 2023-09-04 16:29 | NUR ---
09/04/23 7085 RANDELL CHAN PT EATING AND DRINKING WO DIFF. STATES POPSICLE IS HELPING. HAD TO PT BACK ON O2 @ 5L VIA N/C. O2 SAT ON RA WAS 88%
[2023-09-04] MEDS ORDERED: OxyCODONE HCL 5 MG TAB ONE (16:30)
[2023-09-04 16:39] VITALS: BP 154/100
== END 2023-09-04 16:55 | disposition home or self-care (01) ==
LOC: ORSCSDS 12:22
PROVIDERS: Otolaryngology
PROC: 0CBM8ZX Excision of Pharynx, Via Natural or Artificial Opening Endoscopic, Diagnostic (ICD-10-PCS; principal; 2023-09-04 13:45)
DX: C83.71 Burkitt lymphoma, lymph nodes of head, face, and neck (principal); J35.1 Hypertrophy of tonsils; J44.9 Chronic obstructive pulmonary disease, unspecified; K21.9 Gastro-esophageal reflux disease without esophagitis; Z86.718 Personal history of other venous thrombosis and embolism; F41.8 Other specified anxiety disorders; E66.9 Obesity, unspecified; Z68.35 Body mass index [BMI] 35.0-35.9, adult
CPT/HCPCS: 88305; A9270; J0171; J2704; J3010; J7120

== ENCOUNTER 2023-11-15 00:47 | Emergency (ER) | payer OTHER, BC ==
[~2023-11-15] VITALS: Ht 182.9 cm; Wt 113.4 kg
[~2023-11-15 00:47] MED LIST changes: +Aspir 8181 MG PO; -Lactated Ringer's 1,000 ML IV ONE
[2023-11-15] MEDS ORDERED: Dexamethasone Sod Phos 10 MG/ML 1ML VIAL IV ONE (04:20)
[2023-11-15] MEDS ORDERED: Ketorolac Tromethamine 30mg Vial IV ONE (04:20)
[2023-11-15 07:04] VITALS: BP 151/103
== END 2023-11-15 07:05 | disposition home or self-care (01) ==
LOC: ER 00:47
DX: S73.101A Unspecified sprain of right hip, initial encounter (principal); W01.10XA Fall on same level from slipping, tripping and stumbling with subsequent striking against unspecified object, initial encounter; Z88.2 Allergy status to sulfonamides; Z88.8 Allergy status to other drugs, medicaments and biological substances; Z79.899 Other long term (current) drug therapy; Z87.891 Personal history of nicotine dependence
CPT/HCPCS: 72192; 96374; 96375; 99283-25; J1100; J1885

== ENCOUNTER 2024-02-06 10:24 | Emergency (ER) | payer BC, OTHER ==
[~2024-02-06] VITALS: Ht 182.9 cm; Wt 116.1 kg
[~2024-02-06 10:24] MED LIST changes: +CEFD300 PO; +HYDROCODONE-AC1 EA10 PO
[2024-02-06] MEDS ORDERED: NS 1,000 ML IV SCH (10:40)
[2024-02-06 11:04] LABS: BASOPHILS ABSOLUTE AUTO 0.08 K/mm3 (0.00-0.23); BASOPHILS PERCENT AUTO 1 % (0-2); EOSINOPHILS ABSOLUTE AUTO 0.13 K/mm3 (0.00-0.68); EOSINOPHILS PERCENT AUTO 1 % (0-6); Hematocrit 45.9 % (37.0-53.0); IMMATURE GRAN ABSOLUTE AUTO 0.03 K/mm3 (0.00-0.10); IMMATURE GRAN PERCENT AUTO 0 % (0-1); LYMPHOCYTES ABSOLUTE AUTO 4.34 K/mm3 (0.84-5.20); LYMPHOCYTES PERCENT AUTO 38 % (21-46); MONOCYTES ABSOLUTE AUTO 0.85 K/mm3 (0.16-1.47); MONOCYTES PERCENT AUTO 7 % (4-13); Mean Corpuscular HGB 29.9 pg (26.0-34.0); Mean Corpuscular HGB Conc 34.9 g/dL (31.5-36.5); Mean Corpuscular Volume 86 fL (80-100); Mean Platelet Volume 9.1 fL (9.1-12.4); NEUTROPHILS ABSOLUTE AUTO 5.98 K/mm3 (1.96-9.15); NEUTROPHILS PERCENT AUTO 53 % (41-73); Platelet Count 306 K/mm3 (150-400); RDW Coefficient Variation 17.3 % (11.7-14.2); RDW Standard Deviation 53.8 fL (35.1-46.3); Red Blood Cell Count 5.36 M/mm3 (4.30-5.90); White Blood Cell Count 11.41 K/mm3 (4.00-11.30)
[2024-02-06 11:23] LABS: Bun/Creatinine Ratio 19.7 (12.0-20.0); Creatinine, Blood 0.92 mg/dL (0.60-1.20); Magnesium, Blood 2.6 mg/dL (1.6-2.4); Potassium, Blood 3.9 mmol/L (3.5-5.5)
[2024-02-06 12:00] VITALS: BP 149/106
== END 2024-02-06 12:12 | disposition home or self-care (01) ==
LOC: ER 10:24
PROVIDERS: Emergency Medicine
DX: R55 Syncope and collapse (principal); I10 Essential (primary) hypertension; F17.290 Nicotine dependence, other tobacco product, uncomplicated; Z88.2 Allergy status to sulfonamides; Z88.1 Allergy status to other antibiotic agents; Z88.8 Allergy status to other drugs, medicaments and biological substances
CPT/HCPCS: 71045; 80048; 83735; 84484; 85025; 85379; 93005; 93010; 96360; 99284-25; J7030

== ENCOUNTER → 2024-02-07 | Outpatient (CLI) | payer BC, OTHER ==
[2024-02-07 08:41] LABS: BASOPHILS ABSOLUTE AUTO 0.09 K/mm3 (0.00-0.23); BASOPHILS PERCENT AUTO 1 % (0-2); EOSINOPHILS ABSOLUTE AUTO 0.34 K/mm3 (0.00-0.68); EOSINOPHILS PERCENT AUTO 3 % (0-6); Hematocrit 47.9 % (37.0-53.0); Hemoglobin 16.5 g/dL (13.5-17.5); Mean Corpuscular HGB 29.4 pg (26.0-34.0); Mean Corpuscular HGB Conc 34.4 g/dL (31.5-36.5); Mean Corpuscular Volume 85 fL (80-100); Platelet Count 324 K/mm3 (150-400); RDW Coefficient Variation 17.7 % (11.7-14.2); RDW Standard Deviation 52.5 fL (35.1-46.3); Red Blood Cell Count 5.61 M/mm3 (4.30-5.90); White Blood Cell Count 10.78 K/mm3 (4.00-11.30)
[2024-02-07 08:59] LABS: Albumin, Blood 3.8 g/dL (3.4-5.0); Bilirubin, Total 0.9 mg/dL (0.1-1.0); Bun/Creatinine Ratio 13.2 (12.0-20.0); Calcium, Blood 8.5 mg/dL (8.5-10.1); Creatinine, Blood 1.06 mg/dL (0.60-1.20); Globulin, Blood 3.8 g/dL (2.2-4.0); Potassium, Blood 4.2 mmol/L (3.5-5.5); Total Protein, Blood 7.6 g/dL (6.4-8.2)
[2024-02-07 09:29] LABS: IMMATURE GRAN ABSOLUTE AUTO 0.03 K/mm3 (0.00-0.10); IMMATURE GRAN PERCENT AUTO 0 % (0-1); LYMPHOCYTES ABSOLUTE AUTO 5.66 K/mm3 (0.84-5.20); LYMPHOCYTES PERCENT AUTO 53 % (21-46); MONOCYTES ABSOLUTE AUTO 0.97 K/mm3 (0.16-1.47); MONOCYTES PERCENT AUTO 9 % (4-13); NEUTROPHILS ABSOLUTE AUTO 3.69 K/mm3 (1.96-9.15); NEUTROPHILS PERCENT AUTO 34 % (41-73)
== END ==
LOC: LAB SHORT 08:33 → LAB 08:33
PROVIDERS: Emergency Medicine
DX: R00.2 Palpitations (principal); R50.9 Fever, unspecified
CPT/HCPCS: 80053; 83690; 83880; 84484; 85025; 85379

== ENCOUNTER 2024-03-11 11:40 | Day surgery (SDC) | payer BC, OTHER ==
[~2024-03-11] VITALS: Ht 180.3 cm; Wt 115.3 kg
[~2024-03-11 11:40] MED LIST changes: +Lactated Ringer's 1,000 ML IV ONE; +Lidocaine 2%-Epineph 1:200000 20 ML SDV ONE
[2024-03-11] MEDS ORDERED: Lactated Ringer's 1,000 ML IV ONE (12:30)
[2024-03-11] MEDS ORDERED: Midazolam HCl 1MG / ML 2ML Vial ONE (13:33)
[2024-03-11] MEDS ORDERED: propofoL 20 ML IV ONE ×2 (13:33→14:06)
[2024-03-11] MEDS ORDERED: EPINEPhrine HCl 1 MG / ML 30ML Vial ONE (14:03)
[2024-03-11] MEDS ORDERED: ePHEDrine Sulfate 50 MG/ML 1ML Injection ONE (14:11)
--- NOTE | 2024-03-11 14:13 | NUR ---
03/11/24 1413 Susi Cam WHEN OBTAINING PATIENT'S VS IN PREOP, OXIMETER WAS PROVIDING A HR READING IN THE 30-40S. THIS RN PALPATED PULSE RADIALLY AND THEN LISTENED APICALLY AND OBTAINED HR READING OF 40. PATIENT'S HR NOTED TO BE IRREGULAR WITH PAUSES. HOOKED PATIENT UP FOR RHYTHM STRIP WHICH SHOWED IRREGULAR HEART BEATS. CONSULTED WITH DR MONTOYA AND THEN TOOK PT CHART AND RHYTHM STRIP TO DR ARAUJO AND ADVISED HIM OF THIS WELL. PATIENT DENIES ANY CURRENT SYMPTOMS. DENIES ANY DIZZINESS, LIGHTHEADEDNESS, SOB. STATES HE FEELS A LITTLE NERVOUS FOR THE SURGERY. REPORTS HE HAS BEEN TOLD HE HAS AN ABNORMAL HEART RHYTHM IN THE PAST AND HAS BEEN TOLD HE HAS "SKIPPED BEATS". PATIENT HAS A LOOP RECORDER IN THE ANTERIOR L CHEST AND HAS HAD THIS SINCE APPROXIMATELY 2019.
--- NOTE | 2024-03-11 14:28 | NUR ---
03/11/24 1428 Miriam Wu EPI USED ON FIELD TO SOAK DANIEL FOR USE DURING CASE.
[2024-03-11] MEDS ORDERED: Sugammadex Sodium 200 MG/2ML SDV (100 MG/ML) ONE (14:34)
[2024-03-11] MEDS ORDERED: FentaNYL Citrate 50 MCG/ML 2 ML Injection ONE (14:53)
[2024-03-11] MEDS ORDERED: OxyCODONE HCL 5 MG TAB ONE (15:37)
[2024-03-11] MEDS ORDERED: Labetalol HCL 5 MG/ML 4ML Injection (Single Dose) ONE (15:49)
--- NOTE | 2024-03-11 16:08 | NUR ---
03/11/24 3768 Zachary Landry RN SPOKE WITH ANESTHESIOLOGIST DR ARAUJO ABOUT PT'S DIASTOLIC >100. DR ARAUJO CHECKED ON PATIENT. PT STATES HE IS HYPERTENSIVE BUT IS NOT TAKING ANYTHING AT HOME. DR ARAUJO OK ON GIVING 10MG OF LABETALOL Q10MIN UP TO 20MG VIA IV. RN UPDATED PT'S , LASHA, OF PT STATUS. INFORMED HER OF THE DISCHARGE INSTRUCTIONS AND STATED RN WILL BE GIVING PAPER COPIES TO THE PATIENT TO GO HOME WITH. RN INFORMED LASHA THAT PT BP IS ELEVATED AND IS BEING MONITORED AFTER BEING GIVEN HTN MED. PAIN IS DECREASED ACCORDING TO PATIENT. WCTM UNTIL STABLE AND WILL DC PT.
[2024-03-11 16:21] VITALS: BP 139/96
== END 2024-03-11 16:25 | disposition home or self-care (01) ==
LOC: ORSCSDS 11:40
PROVIDERS: Otolaryngology
PROC: 0CBM8ZX Excision of Pharynx, Via Natural or Artificial Opening Endoscopic, Diagnostic (ICD-10-PCS; principal; 2024-03-11 13:15)
DX: C83.71 Burkitt lymphoma, lymph nodes of head, face, and neck (principal); J35.1 Hypertrophy of tonsils; I10 Essential (primary) hypertension; F17.290 Nicotine dependence, other tobacco product, uncomplicated; K21.9 Gastro-esophageal reflux disease without esophagitis; E66.9 Obesity, unspecified; Z68.35 Body mass index [BMI] 35.0-35.9, adult; F41.9 Anxiety disorder, unspecified; F32.A Depression, unspecified; Z86.718 Personal history of other venous thrombosis and embolism; Z79.899 Other long term (current) drug therapy
CPT/HCPCS: 88305; 88341; 88342; A9270; J0171; J2250; J2704; J3010; J7120

== ENCOUNTER 2024-11-17 04:00 | Emergency (ER) | payer BC, OTHER ==
[~2024-11-17] VITALS: Ht 182.9 cm; Wt 122.5 kg
[~2024-11-17 04:00] MED LIST changes: -Lactated Ringer's 1,000 ML IV ONE; -Lidocaine 2%-Epineph 1:200000 20 ML SDV ONE
[2024-11-17] MEDS ORDERED: Ondansetron 4 MG SoluTab SL ONE (04:25)
[2024-11-17 04:53] LABS: Influenza A, PCR NEGATIVE (NEGATIVE); Influenza B, PCR NEGATIVE (NEGATIVE); Resp Syncytial Virus, PCR NEGATIVE (NEGATIVE); SARS-Cov-2 (COVID-19) PCR, MMC NEGATIVE (NEGATIVE)
[2024-11-17 05:15] VITALS: BP 176/99
[2024-11-17] MEDS ORDERED: ONDA4ODT MM (05:59)
== END 2024-11-17 05:42 | disposition home or self-care (01) ==
LOC: ER 04:00
PROVIDERS: Student in an Organized Health Care Education/Training Program
DX: J06.9 Acute upper respiratory infection, unspecified (principal); I10 Essential (primary) hypertension; Z88.2 Allergy status to sulfonamides; Z79.899 Other long term (current) drug therapy; Z88.8 Allergy status to other drugs, medicaments and biological substances; Z87.891 Personal history of nicotine dependence
CPT/HCPCS: 87637; 99284; A9270

== ENCOUNTER 2024-12-21 05:25 | Emergency (ER) | payer BC, OTHER ==
[~2024-12-21] VITALS: Ht 182.9 cm; Wt 115.2 kg
[2024-12-21 05:45] LABS: Hematocrit 46.7 % (37.0-53.0); Hemoglobin 16.3 g/dL (13.5-17.5); Mean Corpuscular HGB Conc 34.9 g/dL (31.5-36.5); Mean Corpuscular Volume 89 fL (80-100); NRBC ABSOLUTE 0.00 K/mm3 (0.00-0.02); NRBC Auto 0.0 /100 WBC (0.0-0.2); Platelet Count 316 K/mm3 (150-400); RDW Coefficient Variation 14.6 % (11.7-14.2); RDW Standard Deviation 46.6 fL (35.1-46.3)
[2024-12-21 06:03] LABS: BASOPHILS ABSOLUTE MAN 0.11 K/mm3 (0.00-0.23); BASOPHILS PERCENT MAN 1 % (0-2); EOSINOPHILS ABSOLUTE MAN 0.45 K/mm3 (0.00-0.68); EOSINOPHILS PERCENT MAN 4 % (0-6); LYMPHOCYTES ABSOLUTE MAN 8.00 K/mm3 (0.84-5.20); LYMPHOCYTES PERCENT MAN 70 % (21-46); MONOCYTES ABSOLUTE MAN 0.57 K/mm3 (0.16-1.47); MONOCYTES PERCENT MAN 5 % (4-13); NEUTROPHILS ABSOLUTE MAN 2.28 K/mm3 (1.96-9.15); SEG NEUTROPHILS PERCENT MAN 20 % (41-73)
[2024-12-21 06:06] LABS: Alanine Aminotransfer (ALT/SGP 24.0 U/L (12-78); Albumin, Blood 3.7 g/dL (3.4-5.0); Albumin/Globulin Ratio 1.1 (0.8-1.8); Anion Gap 7.0 mmol/L (3-11); Aspartate Aminotrans (AST/SGOT 23.0 U/L (12-37); Bilirubin, Total 0.9 mg/dL (0.1-1.0); Blood Urea Nitrogen 21.0 mg/dL (8-24); CO2, Blood 27.0 mmol/L (21-32); Calcium, Blood 8.8 mg/dL (8.5-10.1); Chloride, Blood 111.0 mmol/L (98-108); Creatinine, Blood 0.9 mg/dL (0.60-1.20); Globulin, Blood 3.4 g/dL (2.2-4.0); Glucose, Blood 106.0 mg/dL (70-99); Potassium, Blood 4.0 mmol/L (3.5-5.5); Sodium, Blood 141.0 mmol/L (136-145); Total Protein, Blood 7.1 g/dL (6.4-8.2)
[2024-12-21] MEDS ORDERED: Ketorolac Tromethamine 30mg Vial IV ONE (07:35)
[2024-12-21 08:45] VITALS: BP 126/90
== END 2024-12-21 08:45 | disposition home or self-care (01) ==
LOC: ER 05:25
PROVIDERS: Student in an Organized Health Care Education/Training Program
DX: K64.9 Unspecified hemorrhoids (principal); R10.30 Lower abdominal pain, unspecified; K57.90 Diverticulosis of intestine, part unspecified, without perforation or abscess without bleeding; I10 Essential (primary) hypertension; Z87.891 Personal history of nicotine dependence; Z88.2 Allergy status to sulfonamides; Z88.1 Allergy status to other antibiotic agents; Z88.8 Allergy status to other drugs, medicaments and biological substances
CPT/HCPCS: 74177; 80053; 85025; 86850; 86900; 86901; 96374-59; 99284-25; A9270; J1885; Q9967